=== PATIENT | male | born 1975 | race Asian ===

== ENCOUNTER 2017-08-10 09:51 | Inpatient (IN) | payer OTHER ==
[2017-08-10 12:06] LABS: Mean Corpuscular HGB Conc 31 % (32-34); Mean Corpuscular Hemoglobin 28 pg (28-32); Mean Corpuscular Volume 92 fl (84-94); Platelet Count 183 K/mm3 (140-440); Red Cell Distribution Width 15.8 % (13.2-15.2)
[2017-08-10 12:16] LABS: Hematocrit 53.2 % (35.5-45.6); Hemoglobin 16.4 gm/dl (11.8-15.2)
[2017-08-10 12:29] LABS: BUN/Creatinine Ratio 13; Blood Urea Nitrogen 15 mg/dL (9-20); Calcium 9.7 mg/dL (8.4-10.2); Hemolysis Index 37
[2017-08-10] MEDS ORDERED: NACL 0.9% 1000 ML 2,000 ML ONE (12:40)
[2017-08-10 12:43] LABS: Anisocytosis 1+; Band Neutrophils # (Manual) 0.4 K/mm3; Basophils % (Manual) 0 % (0.0-1.8); Poikilocytosis 1+; Total Cells Counted 100
[2017-08-10 12:44] LABS: Target Cells 1+; Tear Drop Cells 1+
[2017-08-10] MEDS ORDERED: D50W (25GM) Syringe IV PRN ×2 (12:48→16:01)
--- NOTE | 2017-08-10 13:16 | Emergency Department Report ---
HPI - General Chief Complaint: Hyperglycemia Time Seen by Provider: 08/10/17 12:40 - HPI HPI: This is a 42-year-old F [place]an male presents to the emergency department with a complaint of some fatigue and/or weakness, increased thirst and increased urination. The patient has a history of recently being diagnosed with insulin- dependent diabetes and has 2 previous episodes of diabetic ketoacidosis. The patient says that his significant other made him come in to be seen. He is on Humalog and a second insulin treatment and says that he takes compliantly. His primary care physician is a Dr. Sylvester in [place] but he says he is trying to find a physician closer to this area. He did not take anything for her symptoms at presentation. He denies any chest pain, shortness breath, fever but he did have some nausea and vomiting this morning. ED Past Medical Hx - Past Medical History Hx Diabetes: Yes - Surgical History Past Surgical History?: No - Medications Home Medications: Home Medications Medication Instructions Recorded Confirmed Last Taken Type Insulin Detemir [Levemir VIAL] 30 units SUB-Q DAILY 08/10/17 08/10/17 Unknown History Insulin Lispro Prot/Lispro 30 units SUB-Q BID 08/10/17 08/10/17 Unknown History [HumaLOG MIX 75/25] ED Review of Systems ROS: Stated complaint: WEAKNESS, HYPERGLYCEMIA Other details as noted in HPI Comment: All other systems reviewed and negative Constitutional: weakness. denies: chills, fever Eyes: denies: eye pain, eye discharge, vision change ENT: denies: ear pain, throat pain Respiratory: denies: cough, shortness of breath, wheezing Cardiovascular: denies: chest pain, palpitations Endocrine: increased thirst, increased urine Gastrointestinal: nausea, vomiting Genitourinary: frequency. denies: dysuria Musculoskeletal: denies: back pain, joint swelling, arthralgia Skin: denies: rash, lesions Neurological: denies: headache, numbness Physical Exam - Physical Exam Vital Signs: Vital Signs 08/10/17 11:24 Temperature 97.7 F Pulse Rate 90 Respiratory 18 Rate Blood Pressure 129/81 O2 Sat by Pulse 99 Oximetry Physical Exam: GENERAL: The patient is well-developed well-nourished. HENT: Normocephalic. Atraumatic. Patient has moist mucous membranes. EYES: Extraocular motions are intact. Pupils equal reactive to light bilaterally. NECK: Supple. Trachea is midline. CHEST/LUNGS: Clear to auscultation. There is no respiratory distress noted. HEART/CARDIOVASCULAR: Regular. There is no tachycardia. There is no murmur. ABDOMEN: Abdomen is soft, nontender. Patient has normal bowel sounds. There is no abdominal distention. SKIN: Skin is warm and dry. NEURO: The patient is awake, alert, and oriented. The patient is cooperative. The patient has no focal neurologic deficits. The patient has normal speech. MUSCULOSKELETAL: There is no tenderness or deformity. There is no limitation range of motion. There is no evidence of acute injury. ED Course Vital Signs 08/10/17 11:24 Temperature 97.7 F Pulse Rate 90 Respiratory 18 Rate Blood Pressure 129/81 O2 Sat by Pulse 99 Oximetry ED Medical Decision Making - Lab Data Result diagrams: 08/10/17 11:39 08/10/17 13:59 - Medical Decision Making The patient presents in diabetic ketoacidosis. He has venous acidosis of 7. He has a bicarbonate level of 6. Anion gap is 44. His blood sugar is about 450. Given IV fluid resuscitation and started on insulin drip he will be admitted to the ICU. Accepted for admission by the hospitalist, Dr. Alvarez. - Differential Diagnosis DKA, HHNK, Hypoglycemia Critical Care Time: No Critical care attestation.: If time is entered above; I have spent that time in minutes in the direct care of this critically ill patient, excluding procedure time. ED Disposition Clinical Impression: Metabolic acidosis Diabetic ketoacidosis Qualifiers: Diabetes mellitus type: type 1 Diabetes mellitus complication detail: without coma Qualified Code(s): E10.10 - Type 1 diabetes mellitus with ketoacidosis without coma Uncontrolled diabetes mellitus Qualifiers: Diabetes mellitus type: type 1 Diabetes mellitus complication status: with ketoacidosis Diabetes mellitus complication detail: without coma Qualified Code( s): E10.10 - Type 1 diabetes mellitus with ketoacidosis without coma Disposition: OP ADMIT IP TO THIS HOSP Is pt being admited?: Yes Condition: Stable Instructions: Diabetic Ketoacidosis (ED) Referrals: EDMAR HANEY MD [Primary Care Provider] - 3-5 Days Time of Disposition: 13:43
[2017-08-10 13:44] LABS: Bacteria,Urine 2+ /HPF (Negative); Bilirubin,Urine NEG (Negative); Blood,Urine SM (Negative); Color,Urine Yellow (Yellow); Granular Casts,Urine 10 /LPF; Mucus,Urine FEW /HPF; Nitrite,Urine NEG (Negative); Urobilinogen,Urine < 2.0 mg/dL (<2.0); WBC,Urine < 1.0 /HPF (0.0-6.0)
[2017-08-10 14:45] LABS: BUN/Creatinine Ratio 12; Blood Urea Nitrogen 16 mg/dL (9-20); Calcium 9.4 mg/dL (8.4-10.2); Hemolysis Index 80
[2017-08-10] MEDS: HEPARIN SUB-Q SCH ×2 (14:46→22:51)
[2017-08-10 14:58] LABS: Magnesium 2.6 mg/dL (1.7-2.3)
[2017-08-10 15:36] LABS: BUN/Creatinine Ratio 13; Blood Urea Nitrogen 16 mg/dL (9-20); Calcium 9.2 mg/dL (8.4-10.2); Hemolysis Index 40
--- NOTE | 2017-08-10 16:01 | History and Physical Report ---
History of Present Illness Date of examination: 08/10/17 Date of admission: 08/10/17 13:43 Chief complaint: Please see dictated H/p in reports History of present illness: Cassidye see dictated H/p in reports Medications and Allergies Allergies Allergy/AdvReac Type Severity Reaction Status Date / Time No Known Allergies Allergy Verified 08/10/17 11:24 Home Medications Medication Instructions Recorded Confirmed Last Taken Type Insulin Detemir [Levemir VIAL] 30 units SUB-Q DAILY 08/10/17 08/10/17 Unknown History Insulin Lispro Prot/Lispro 30 units SUB-Q BID 08/10/17 08/10/17 Unknown History [HumaLOG MIX 75/25] Active Meds: Active Medications Dextrose (D50w (25gm) Syringe) 0 ml IV PRN PRN PRN Reason: Hypoglycemia Heparin Sodium (Porcine) (Heparin) 5,000 unit SUB-Q Q8HR GREG Last Admin: 08/10/17 14:46 Dose: 5,000 unit Insulin Human Regular 100 (units/ Sodium Chloride) 100 mls @ 5 mls/hr IV TITR GREG; 5 UNITS/HR PRN Reason: Protocol Exam - Constitutional Vitals: Temp Pulse Resp BP Pulse Ox 97.7 F 90 18 129/81 99 08/10/17 11:24 08/10/17 11:24 08/10/17 11:24 08/10/17 11:24 08/10/17 11:24 Results - Labs CBC & Chem 7: 08/10/17 11:39 08/11/17 07:13 Labs: Laboratory Last Values WBC 17.6 K/mm3 (4.5-11.0) H 08/10/17 11:39 RBC 5.80 M/mm3 (3.65-5.03) H 08/10/17 11:39 Hgb 16.4 gm/dl (11.8-15.2) H 08/10/17 11:39 Hct 53.2 % (35.5-45.6) H 08/10/17 11:39 MCV 92 fl (84-94) 08/10/17 11:39 MCH 28 pg (28-32) 08/10/17 11:39 MCHC 31 % (32-34) L 08/10/17 11:39 RDW 15.8 % (13.2-15.2) H 08/10/17 11:39 Plt Count 183 K/mm3 (140-440) 08/10/17 11:39 Add Manual Diff Complete 08/10/17 11:39 Total Counted 100 08/10/17 11:39 Seg Neuts % (Manual) 77.0 % (40.0-70.0) H 08/10/17 11:39 Band Neutrophils % 2.0 % 08/10/17 11:39 Lymphocytes % (Manual) 10.0 % (13.4-35.0) L 08/10/17 11:39 Reactive Lymphs % (Man) 0 % 08/10/17 11:39 Monocytes % (Manual) 7.0 % (0.0-7.3) 08/10/17 11:39 Eosinophils % (Manual) 1.0 % (0.0-4.3) 08/10/17 11:39 Basophils % (Manual) 0 % (0.0-1.8) 08/10/17 11:39 Metamyelocytes % 3.0 % 08/10/17 11:39 Myelocytes % 0 % 08/10/17 11:39 Promyelocytes % 0 % 08/10/17 11:39 Blast Cells % 0 % 08/10/17 11:39 Nucleated RBC % Not Reportable 08/10/17 11:39 Seg Neutrophils # Man 13.6 K/mm3 (1.8-7.7) H 08/10/17 11:39 Band Neutrophils # 0.4 K/mm3 08/10/17 11:39 Lymphocytes # (Manual) 1.8 K/mm3 (1.2-5.4) 08/10/17 11:39 Abs React Lymphs (Man) 0.0 K/mm3 08/10/17 11:39 Monocytes # (Manual) 1.2 K/mm3 (0.0-0.8) H 08/10/17 11:39 Eosinophils # (Manual) 0.2 K/mm3 (0.0-0.4) 08/10/17 11:39 Basophils # (Manual) 0.0 K/mm3 (0.0-0.1) 08/10/17 11:39 Metamyelocytes # 0.5 K/mm3 08/10/17 11:39 Myelocytes # 0.0 K/mm3 08/10/17 11:39 Promyelocytes # 0.0 K/mm3 08/10/17 11:39 Blast Cells # 0.0 K/mm3 08/10/17 11:39 WBC Morphology Not Reportable 08/10/17 11:39 Hypersegmented Neuts Not Reportable 08/10/17 11:39 Hyposegmented Neuts Not Reportable 08/10/17 11:39 Hypogranular Neuts Not Reportable 08/10/17 11:39 Smudge Cells Not Reportable 08/10/17 11:39 Toxic Granulation Not Reportable 08/10/17 11:39 Toxic Vacuolation Not Reportable 08/10/17 11:39 Dohle Bodies Not Reportable 08/10/17 11:39 Pelger-Huet Anomaly Not Reportable 08/10/17 11:39 Mary Rods Not Reportable 08/10/17 11:39 Platelet Estimate Appears normal 08/10/17 11:39 Clumped Platelets Not Reportable 08/10/17 11:39 Plt Clumps, EDTA Not Reportable 08/10/17 11:39 Large Platelets Not Reportable 08/10/17 11:39 Giant Platelets Not Reportable 08/10/17 11:39 Platelet Satelliting Not Reportable 08/10/17 11:39 Plt Morphology Comment Not Reportable 08/10/17 11:39 RBC Morphology Not Reportable 08/10/17 11:39 Dimorphic RBCs Not Reportable 08/10/17 11:39 Polychromasia Not Reportable 08/10/17 11:39 Hypochromasia Not Reportable 08/10/17 11:39 Poikilocytosis 1+ 08/10/17 11:39 Anisocytosis 1+ 08/10/17 11:39 Microcytosis Not Reportable 08/10/17 11:39 Macrocytosis Not Reportable 08/10/17 11:39 Spherocytes Not Reportable 08/10/17 11:39 Pappenheimer Bodies Not Reportable 08/10/17 11:39 Sickle Cells Not Reportable 08/10/17 11:39 Target Cells 1+ 08/10/17 11:39 Tear Drop Cells 1+ 08/10/17 11:39 Ovalocytes Not Reportable 08/10/17 11:39 Helmet Cells Not Reportable 08/10/17 11:39 Quinones-Blanford Bodies Not Reportable 08/10/17 11:39 [place] Rings Not Reportable 08/10/17 11:39 Burnside Cells Not Reportable 08/10/17 11:39 Bite Cells Not Reportable 08/10/17 11:39 Crenated Cell Not Reportable 08/10/17 11:39 Elliptocytes Not Reportable 08/10/17 11:39 Acanthocytes (Spur) Not Reportable 08/10/17 11:39 Rouleaux Not Reportable 08/10/17 11:39 Hemoglobin C Crystals Not Reportable 08/10/17 11:39 Schistocytes Not Reportable 08/10/17 11:39 Malaria parasites Not Reportable 08/10/17 11:39 Fernando Bodies Not Reportable 08/10/17 11:39 Hem Pathologist Commnt No 08/10/17 11:39 VBG pH 7.020 (7.320-7.420) L* 08/10/17 11:39 Sodium 138 mmol/L (137-145) 08/10/17 14:42 Potassium 5.6 mmol/L (3.6-5.0) H 08/10/17 14:42 Chloride 95.1 mmol/L (98-107) L 08/10/17 14:42 Carbon Dioxide 2 mmol/L (22-30) L* 08/10/17 14:42 Anion Gap 47 mmol/L 08/10/17 14:42 BUN 16 mg/dL (9-20) 08/10/17 14:42 Creatinine 1.2 mg/dL (0.8-1.5) 08/10/17 14:42 Estimated GFR > 60 ml/min 08/10/17 14:42 BUN/Creatinine Ratio 13 % 08/10/17 14:42 Glucose 445 mg/dL (75-100) H 08/10/17 14:42 POC Glucose 334 (70-105) H 08/10/17 11:25 Calcium 9.2 mg/dL (8.4-10.2) 08/10/17 14:42 Phosphorus 6.00 mg/dL (2.5-4.5) H 08/10/17 13:59 Magnesium 2.60 mg/dL (1.7-2.3) H 08/10/17 13:59 Urine Color Yellow (Yellow) 08/10/17 13:23 Urine Turbidity Clear (Clear) 08/10/17 13:23 Urine pH 5.0 (5.0-7.0) 08/10/17 13:23 Ur Specific [place] 1.020 (1.003-1.030) 08/10/17 13:23 Urine Protein 100 mg/dl mg/dL (Negative) 08/10/17 13:23 Urine Glucose (UA) >=500 mg/dL (Negative) 08/10/17 13:23 Urine Ketones 80 mg/dL (Negative) 08/10/17 13:23 Urine Blood Sm (Negative) 08/10/17 13:23 Urine Nitrite Neg (Negative) 08/10/17 13:23 Urine Bilirubin Neg (Negative) 08/10/17 13:23 Urine Urobilinogen < 2.0 mg/dL (<2.0) 08/10/17 13:23 Ur Leukocyte Esterase Neg (Negative) 08/10/17 13:23 Urine WBC (Auto) < 1.0 /HPF (0.0-6.0) 08/10/17 13:23 Urine RBC (Auto) 3.0 /HPF (0.0-6.0) 08/10/17 13:23 U Epithel Cells (Auto) < 1.0 /HPF (0-13.0) 08/10/17 13:23 Urine Bacteria (Auto) 2+ /HPF (Negative) 08/10/17 13:23 Granular Casts 10 /LPF 08/10/17 13:23 Urine Mucus Few /HPF 08/10/17 13:23
[2017-08-10] MEDS: NovoLIN R 100 UNITS in NACL 0.9% 99 ML IV SCH (16:02)
[2017-08-10] MEDS: NACL 0.9% 1000 ML 1,000 ML IV ONE ×2 (16:12→18:16)
[2017-08-10 16:44] LABS: Creatinine,Urine 27.7 mg/dL (0.1-20.0); Microalbumin/Creatinine Ratio 595.6 ug/mg
[2017-08-10] MEDS ORDERED: KCL 10MEQ/100ML 10 MEQ/100 ML BAG IV PRN ×2 (17:00)
[2017-08-10] MEDS ORDERED: D5W/0.45% NACL/KCL 20 MEQ 20 MEQ/1,000 ML BAG IV SCH (17:00)
[2017-08-10] MEDS ORDERED: NovoLIN R 100 UNITS in NACL 0.9% 99 ML IV SCH (18:00)
[2017-08-10 20:18] LABS: BUN/Creatinine Ratio 12; Blood Urea Nitrogen 13 mg/dL (9-20); Calcium 8.7 mg/dL (8.4-10.2); Hemolysis Index 45
[2017-08-10 20:21] LABS: Chol/HDL Ratio 11.58 %; HDL Cholesterol 36 mg/dL (40-59); LDL Cholesterol,Direct TNR mg/dL (50-130)
[2017-08-11] MEDS: NACL 0.9% 1000 ML 1,000 ML IV ONE (00:39)
[2017-08-11 00:52] LABS: BUN/Creatinine Ratio 12; Blood Urea Nitrogen 11 mg/dL (9-20); Calcium 8.6 mg/dL (8.4-10.2); Hemolysis Index 22
[2017-08-11] MEDS: HEPARIN SUB-Q SCH ×2 (06:19→14:59)
[2017-08-11] MEDS: ZOSYN/NS 4.5GM/100ML 4.5 GM/100 ML VIAL IV SCH ×3 (06:20→22:43)
[2017-08-11 06:21] LABS: BUN/Creatinine Ratio 11; Blood Urea Nitrogen 9 mg/dL (9-20); Calcium 6.9 mg/dL (8.4-10.2); Hemolysis Index 5
[2017-08-11 07:36] LABS: Alanine Aminotransferase TNR units/L (7-56); BUN/Creatinine Ratio TNR; Blood Urea Nitrogen TNR mg/dL (9-20)
[2017-08-11 07:37] LABS: Albumin TNR g/dL (3.9-5); Calcium TNR mg/dL (8.4-10.2); Hemolysis Index TNR
[2017-08-11 08:02] LABS: Alanine Aminotransferase 12 units/L (7-56); Albumin 4.1 g/dL (3.9-5); BUN/Creatinine Ratio 13; Blood Urea Nitrogen 10 mg/dL (9-20); Calcium 8.5 mg/dL (8.4-10.2); Hemolysis Index 17
[2017-08-11] MEDS: NovoLIN R 100 UNITS in NACL 0.9% 99 ML IV SCH (08:56)
--- NOTE | 2017-08-11 09:56 | History and Physical Report ---
ADDENDUM Systemic inflammatory response syndrome. The patient has a high white count of 17,600. No focus of infection seen. Culture is ordered. Urine is not the source of infection. We will treat him with broad-spectrum antibiotics, Zosyn. Also, the leukocytosis can be secondary to stress-induced by diabetic ketoacidosis. JOB# [id number] VSM/NTS
--- NOTE | 2017-08-11 10:15 | History and Physical Report ---
CHIEF COMPLAINT: Increasing shortness of breath and feeling weak for 1 day. HISTORY OF PRESENT ILLNESS: A 42 -[place]er male with history of insulin-dependent diabetes, apparently compliant, comes in for increasing fatigue and weakness and increasing thirst and increasing urination. The patient has been diagnosed with insulin-dependent diabetes, recently and is on insulin Levemir 30 units at night time and Humalog mix 75/25 30 units twice a day. The patient states he has been taking it regularly. No chest pain. No fever, no chills. PAST MEDICAL HISTORY: Significant for recently diagnosed insulin-dependent diabetes. PAST SURGICAL HISTORY: None. MEDICATIONS: Humalog mix 75/25 30 units twice a day and Levemir 30 units at night time. FAMILY HISTORY: Significant for hypertension. REVIEW OF SYSTEMS: Significant for weakness and shortness of breath and nausea. Vomited about 4 times. Otherwise, review of systems is essentially negative. PHYSICAL EXAMINATION: GENERAL: The patient is slightly tachypneic. VITAL SIGNS: Temperature 97.7, pulse is 90, respirations are 18, blood pressure 129/81, sats are 99%. HEENT: Dry mucous membranes. Pupils are equal and reactive. NECK: Supple, no lymphadenopathy, no thyromegaly. LUNGS: Clear to auscultation and percussion. Good air entry. CARDIOVASCULAR: S1, S2 heard. No gallop, no murmur, no rub. Apical impulse in left fifth intercostal space, in midclavicular anterior axillary line. ABDOMEN: Soft and benign. No hepatosplenomegaly. No guarding, no rigidity. Hernial orifices are normal. EXTREMITIES: Good pedal pulses. No pedal edema. CENTRAL NERVOUS SYSTEM: Alert and oriented x 4, nonfocal exam. SKIN: Normal. LABORATORY DATA: Significant for white count of 17,000, potassium of 5.8. Initial glucose of 444. A1c was 13.0, bicarbonate is 6, BUN and creatinine is 15 and 1.2. Initial potassium is 4.9, later on it was 5.6. Triglycerides are 720 and cholesterol is 417, HDL is 336. ASSESSMENT AND PLAN: 1. Diabetic ketoacidosis. The patient had low bicarbonate. The patient initially admitted to ICU on insulin drip and IV fluids. The patient's insulin to be adjusted to 75/25 40 units twice a day. Discontinue the Levemir. We will add Apidra before lunch, 10 units. His A1c is 13, which is high and suggesting poorly controlled diabetes. 2. Hyperkalemia. Kayexalate if necessary. In the meantime, sodium bicarbonate and insulin drip. 3. Hypertriglyceridemia. The patient added on fenofibrate and statins. The patient may be susceptible to hypertriglyceridemia. 4. Deep venous thrombosis prophylaxis, Lovenox 40 mg subcutaneous daily. CRITICAL CARE STATEMENT: The high probability of a clinically significant sudden or life-threatening deterioration of the pulmonary, cardiac and renal systems required my full and direct attention, intervention and personal management. The aggregate critical care time was 40 minutes: The time is in addition to time spent performing reported procedures, but includes the following, data review and interpretation, patient assessment and monitoring of vital signs, documentation, medication orders and management. JOB# [id number] GURMEET/GLORIA
[2017-08-11 10:39] LABS: BUN/Creatinine Ratio 14; Blood Urea Nitrogen 10 mg/dL (9-20); Calcium 8.4 mg/dL (8.4-10.2); Hemolysis Index 45
[2017-08-11] MEDS: TRICOR PO SCH (12:10)
--- NOTE | 2017-08-11 13:17 | Progress Note ---
Assessment and Plan Assessment and plan: DKA. Patient reports he was diagnosed with diabetes mellitus partly 2 years ago. Patient states that his regimen is 75/25 Humalog mix, 30 units twice a day and Levemir 30 units at bedtime. We will continue the IV insulin drip until the anion gap has closed. Continue aggressive IV fluid hydration. Follow -up serial BMPs. Hyperkalemia. Resolved. Etiology secondary to above. SIRS. Etiology likely secondary to DKA. No evidence of infection at this present time. Continue empiric antibiotics for now Leukocytosis. Likely stress/leukemoid reaction from above The high probability of a clinically significant, sudden or life threatening deterioration of the [endocrine] system(s) required my full and direct attention , intervention and personal management. The aggregate critical care time was [31 ] minutes. This time is in addition to time spent performing reported procedures but includes the following: [x] Data Review and interpretation [x] Patient assessment and monitoring of vital signs [x] Documentation [x] Medication orders and management History Interval history: She denies chest pain, shortness of breath. Patient states that he feels better. Hospitalist Physical - Constitutional Vitals: Temp Pulse Resp BP Pulse Ox 97.7 F 64 13 96/68 100 08/10/17 11:24 08/11/17 09:00 08/11/17 09:00 08/11/17 09:00 08/10/17 20:00 General appearance: Present: no acute distress, well-nourished - EENT Eyes: Present: PERRL, EOM intact ENT: hearing intact, clear oral mucosa, dentition normal - Neck Neck: Present: supple, normal ROM - Respiratory Respiratory effort: normal Respiratory: bilateral: CTA - Cardiovascular Rhythm: regular Heart Sounds: Present: S1 & S2. Absent: gallop, rub - Extremities Extremities: no ischemia, No edema, Full ROM - Abdominal General gastrointestinal: soft, non-tender, non-distended, normal bowel sounds - Integumentary Integumentary: Present: clear, warm, dry - Neurologic Neurologic: CNII-XII intact, moves all extremities Results - Labs CBC & Chem 7: 08/10/17 11:39 08/11/17 09:27 Labs: Laboratory Last Values WBC 17.6 K/mm3 (4.5-11.0) H 08/10/17 11:39 RBC 5.80 M/mm3 (3.65-5.03) H 08/10/17 11:39 Hgb 16.4 gm/dl (11.8-15.2) H 08/10/17 11:39 Hct 53.2 % (35.5-45.6) H 08/10/17 11:39 MCV 92 fl (84-94) 08/10/17 11:39 MCH 28 pg (28-32) 08/10/17 11:39 MCHC 31 % (32-34) L 08/10/17 11:39 RDW 15.8 % (13.2-15.2) H 08/10/17 11:39 Plt Count 183 K/mm3 (140-440) 08/10/17 11:39 Add Manual Diff Complete 08/10/17 11:39 Total Counted 100 08/10/17 11:39 Seg Neuts % (Manual) 77.0 % (40.0-70.0) H 08/10/17 11:39 Band Neutrophils % 2.0 % 08/10/17 11:39 Lymphocytes % (Manual) 10.0 % (13.4-35.0) L 08/10/17 11:39 Reactive Lymphs % (Man) 0 % 08/10/17 11:39 Monocytes % (Manual) 7.0 % (0.0-7.3) 08/10/17 11:39 Eosinophils % (Manual) 1.0 % (0.0-4.3) 08/10/17 11:39 Basophils % (Manual) 0 % (0.0-1.8) 08/10/17 11:39 Metamyelocytes % 3.0 % 08/10/17 11:39 Myelocytes % 0 % 08/10/17 11:39 Promyelocytes % 0 % 08/10/17 11:39 Blast Cells % 0 % 08/10/17 11:39 Nucleated RBC % Not Reportable 08/10/17 11:39 Seg Neutrophils # Man 13.6 K/mm3 (1.8-7.7) H 08/10/17 11:39 Band Neutrophils # 0.4 K/mm3 08/10/17 11:39 Lymphocytes # (Manual) 1.8 K/mm3 (1.2-5.4) 08/10/17 11:39 Abs React Lymphs (Man) 0.0 K/mm3 08/10/17 11:39 Monocytes # (Manual) 1.2 K/mm3 (0.0-0.8) H 08/10/17 11:39 Eosinophils # (Manual) 0.2 K/mm3 (0.0-0.4) 08/10/17 11:39 Basophils # (Manual) 0.0 K/mm3 (0.0-0.1) 08/10/17 11:39 Metamyelocytes # 0.5 K/mm3 08/10/17 11:39 Myelocytes # 0.0 K/mm3 08/10/17 11:39 Promyelocytes # 0.0 K/mm3 08/10/17 11:39 Blast Cells # 0.0 K/mm3 08/10/17 11:39 WBC Morphology Not Reportable 08/10/17 11:39 Hypersegmented Neuts Not Reportable 08/10/17 11:39 Hyposegmented Neuts Not Reportable 08/10/17 11:39 Hypogranular Neuts Not Reportable 08/10/17 11:39 Smudge Cells Not Reportable 08/10/17 11:39 Toxic Granulation Not Reportable 08/10/17 11:39 Toxic Vacuolation Not Reportable 08/10/17 11:39 Dohle Bodies Not Reportable 08/10/17 11:39 Pelger-Huet Anomaly Not Reportable 08/10/17 11:39 Mary Rods Not Reportable 08/10/17 11:39 Platelet Estimate Appears normal 08/10/17 11:39 Clumped Platelets Not Reportable 08/10/17 11:39 Plt Clumps, EDTA Not Reportable 08/10/17 11:39 Large Platelets Not Reportable 08/10/17 11:39 Giant Platelets Not Reportable 08/10/17 11:39 Platelet Satelliting Not Reportable 08/10/17 11:39 Plt Morphology Comment Not Reportable 08/10/17 11:39 RBC Morphology Not Reportable 08/10/17 11:39 Dimorphic RBCs Not Reportable 08/10/17 11:39 Polychromasia Not Reportable 08/10/17 11:39 Hypochromasia Not Reportable 08/10/17 11:39 Poikilocytosis 1+ 08/10/17 11:39 Anisocytosis 1+ 08/10/17 11:39 Microcytosis Not Reportable 08/10/17 11:39 Macrocytosis Not Reportable 08/10/17 11:39 Spherocytes Not Reportable 08/10/17 11:39 Pappenheimer Bodies Not Reportable 08/10/17 11:39 Sickle Cells Not Reportable 08/10/17 11:39 Target Cells 1+ 08/10/17 11:39 Tear Drop Cells 1+ 08/10/17 11:39 Ovalocytes Not Reportable 08/10/17 11:39 Helmet Cells Not Reportable 08/10/17 11:39 Quinones-Capulin Bodies Not Reportable 08/10/17 11:39 [place] Rings Not Reportable 08/10/17 11:39 [place] Cells Not Reportable 08/10/17 11:39 Bite Cells Not Reportable 08/10/17 11:39 Crenated Cell Not Reportable 08/10/17 11:39 Elliptocytes Not Reportable 08/10/17 11:39 Acanthocytes (Spur) Not Reportable 08/10/17 11:39 Rouleaux Not Reportable 08/10/17 11:39 Hemoglobin C Crystals Not Reportable 08/10/17 11:39 Schistocytes Not Reportable 08/10/17 11:39 Malaria parasites Not Reportable 08/10/17 11:39 Fernando Bodies Not Reportable 08/10/17 11:39 Hem Pathologist Commnt No 08/10/17 11:39 VBG pH 7.020 (7.320-7.420) L* 08/10/17 11:39 Sodium 132 mmol/L (137-145) L 08/11/17 09:27 Potassium 4.0 mmol/L (3.6-5.0) 08/11/17 09:27 Chloride 99.2 mmol/L (98-107) 08/11/17 09:27 Carbon Dioxide 12 mmol/L (22-30) L 08/11/17 09:27 Anion Gap 25 mmol/L 08/11/17 09:27 BUN 10 mg/dL (9-20) 08/11/17 09:27 Creatinine 0.7 mg/dL (0.8-1.5) L 08/11/17 09:27 Estimated GFR > 60 ml/min 08/11/17 09:27 BUN/Creatinine Ratio 14 % 08/11/17 09:27 Glucose 218 mg/dL (75-100) H 08/11/17 09:27 POC Glucose 100 (70-105) 08/11/17 13:14 Hemoglobin A1c 13.0 % (4-6) H 08/10/17 19:40 Calcium 8.4 mg/dL (8.4-10.2) 08/11/17 09:27 Phosphorus 3.70 mg/dL (2.5-4.5) D 08/10/17 19:40 Magnesium 2.20 mg/dL (1.7-2.3) 08/10/17 19:40 Total Bilirubin 0.40 mg/dL (0.1-1.2) 08/11/17 07:13 AST 14 units/L (5-40) 08/11/17 07:13 ALT 12 units/L (7-56) 08/11/17 07:13 Alkaline Phosphatase 89 units/L (35-129) 08/11/17 07:13 Total Protein 6.6 g/dL (6.3-8.2) 08/11/17 07:13 Albumin 4.1 g/dL (3.9-5) 08/11/17 07:13 Albumin/Globulin Ratio 1.6 % 08/11/17 07:13 Triglycerides 720 mg/dL (2-149) H 08/10/17 19:40 Cholesterol 417 mg/dL (50-199) H 08/10/17 19:40 LDL Cholesterol Direct TNR 08/10/17 19:40 HDL Cholesterol 36 mg/dL (40-59) L 08/10/17 19:40 Cholesterol/HDL Ratio 11.58 % 08/10/17 19:40 Urine Color Yellow (Yellow) 08/10/17 13:23 Urine Turbidity Clear (Clear) 08/10/17 13:23 Urine pH 5.0 (5.0-7.0) 08/10/17 13:23 Ur Specific Bruce 1.020 (1.003-1.030) 08/10/17 13:23 Urine Protein 100 mg/dl mg/dL (Negative) 08/10/17 13:23 Urine Glucose (UA) >=500 mg/dL (Negative) 08/10/17 13:23 Urine Ketones 80 mg/dL (Negative) 08/10/17 13:23 Urine Blood Sm (Negative) 08/10/17 13:23 Urine Nitrite Neg (Negative) 08/10/17 13:23 Urine Bilirubin Neg (Negative) 08/10/17 13:23 Urine Urobilinogen < 2.0 mg/dL (<2.0) 08/10/17 13:23 Ur Leukocyte Esterase Neg (Negative) 08/10/17 13:23 Urine WBC (Auto) < 1.0 /HPF (0.0-6.0) 08/10/17 13:23 Urine RBC (Auto) 3.0 /HPF (0.0-6.0) 08/10/17 13:23 U Epithel Cells (Auto) < 1.0 /HPF (0-13.0) 08/10/17 13:23 Urine Bacteria (Auto) 2+ /HPF (Negative) 08/10/17 13:23 Granular Casts 10 /LPF 08/10/17 13:23 Urine Mucus Few /HPF 08/10/17 13:23 Urine Creatinine 27.7 mg/dL (0.1-20.0) H 08/10/17 16:15 Urine Microalbumin 16.5 mg/dL (0.1-34.0) 08/10/17 16:15 Microalb/Creat Ratio 595.6 ug/mg 08/10/17 16:15
[2017-08-11 13:40] LABS: BUN/Creatinine Ratio 13; Blood Urea Nitrogen 9 mg/dL (9-20); Calcium 8.8 mg/dL (8.4-10.2); Hemolysis Index 11
[2017-08-11 16:33] LABS: BUN/Creatinine Ratio 13; Blood Urea Nitrogen 9 mg/dL (9-20); Calcium 8.6 mg/dL (8.4-10.2); Hemolysis Index 15
[2017-08-11] MEDS ORDERED: D50W (25GM) Syringe IV PRN (20:44)
[2017-08-11] MEDS ORDERED: NACL 0.9% 1000 ML 1,000 ML IV SCH (21:00)
[2017-08-11] MEDS ORDERED: PRAVACHOL PO SCH (22:00)
[2017-08-12] MEDS: HEPARIN SUB-Q SCH ×3 (00:29→16:59)
[2017-08-12] MEDS: ZOSYN/NS 4.5GM/100ML 4.5 GM/100 ML VIAL IV SCH (07:04)
--- NOTE | 2017-08-12 09:36 | Progress Note ---
Assessment and Plan Assessment and plan: DKA. Patient reports he was diagnosed with diabetes mellitus partly 2 years ago. Patient states that his regimen is 75/25 Humalog mix, 30 units twice a day and Levemir 30 units at bedtime. Patient's blood sugar this morning remained elevated. We will make adjustments to his insulin as needed. Hyperkalemia. Resolved. Etiology secondary to above. SIRS. Etiology likely secondary to DKA. No evidence of infection at this present time. Continue empiric antibiotics for now Leukocytosis. Likely stress/leukemoid reaction from above History Interval history: No new issues overnight. Hospitalist Physical - Constitutional Vitals: Temp Pulse Resp BP Pulse Ox 98.4 F 60 20 92/54 99 08/12/17 08:08 08/12/17 08:08 08/12/17 08:08 08/12/17 08:08 08/12/17 08:08 General appearance: Present: no acute distress, well-nourished - EENT Eyes: Present: PERRL, EOM intact ENT: hearing intact, clear oral mucosa, dentition normal - Neck Neck: Present: supple, normal ROM - Respiratory Respiratory effort: normal Respiratory: bilateral: CTA - Cardiovascular Rhythm: regular Heart Sounds: Present: S1 & S2. Absent: gallop, rub - Extremities Extremities: no ischemia, No edema, Full ROM - Abdominal General gastrointestinal: soft, non-tender, non-distended, normal bowel sounds - Integumentary Integumentary: Present: clear, warm, dry - Neurologic Neurologic: CNII-XII intact, moves all extremities Results - Labs CBC & Chem 7: 08/10/17 11:39 08/11/17 15:58 Labs: Laboratory Last Values WBC 17.6 K/mm3 (4.5-11.0) H 08/10/17 11:39 RBC 5.80 M/mm3 (3.65-5.03) H 08/10/17 11:39 Hgb 16.4 gm/dl (11.8-15.2) H 08/10/17 11:39 Hct 53.2 % (35.5-45.6) H 08/10/17 11:39 MCV 92 fl (84-94) 08/10/17 11:39 MCH 28 pg (28-32) 08/10/17 11:39 MCHC 31 % (32-34) L 08/10/17 11:39 RDW 15.8 % (13.2-15.2) H 08/10/17 11:39 Plt Count 183 K/mm3 (140-440) 08/10/17 11:39 Add Manual Diff Complete 08/10/17 11:39 Total Counted 100 08/10/17 11:39 Seg Neuts % (Manual) 77.0 % (40.0-70.0) H 08/10/17 11:39 Band Neutrophils % 2.0 % 08/10/17 11:39 Lymphocytes % (Manual) 10.0 % (13.4-35.0) L 08/10/17 11:39 Reactive Lymphs % (Man) 0 % 08/10/17 11:39 Monocytes % (Manual) 7.0 % (0.0-7.3) 08/10/17 11:39 Eosinophils % (Manual) 1.0 % (0.0-4.3) 08/10/17 11:39 Basophils % (Manual) 0 % (0.0-1.8) 08/10/17 11:39 Metamyelocytes % 3.0 % 08/10/17 11:39 Myelocytes % 0 % 08/10/17 11:39 Promyelocytes % 0 % 08/10/17 11:39 Blast Cells % 0 % 08/10/17 11:39 Nucleated RBC % Not Reportable 08/10/17 11:39 Seg Neutrophils # Man 13.6 K/mm3 (1.8-7.7) H 08/10/17 11:39 Band Neutrophils # 0.4 K/mm3 08/10/17 11:39 Lymphocytes # (Manual) 1.8 K/mm3 (1.2-5.4) 08/10/17 11:39 Abs React Lymphs (Man) 0.0 K/mm3 08/10/17 11:39 Monocytes # (Manual) 1.2 K/mm3 (0.0-0.8) H 08/10/17 11:39 Eosinophils # (Manual) 0.2 K/mm3 (0.0-0.4) 08/10/17 11:39 Basophils # (Manual) 0.0 K/mm3 (0.0-0.1) 08/10/17 11:39 Metamyelocytes # 0.5 K/mm3 08/10/17 11:39 Myelocytes # 0.0 K/mm3 08/10/17 11:39 Promyelocytes # 0.0 K/mm3 08/10/17 11:39 Blast Cells # 0.0 K/mm3 08/10/17 11:39 WBC Morphology Not Reportable 08/10/17 11:39 Hypersegmented Neuts Not Reportable 08/10/17 11:39 Hyposegmented Neuts Not Reportable 08/10/17 11:39 Hypogranular Neuts Not Reportable 08/10/17 11:39 Smudge Cells Not Reportable 08/10/17 11:39 Toxic Granulation Not Reportable 08/10/17 11:39 Toxic Vacuolation Not Reportable 08/10/17 11:39 Dohle Bodies Not Reportable 08/10/17 11:39 Pelger-Huet Anomaly Not Reportable 08/10/17 11:39 Mary Rods Not Reportable 08/10/17 11:39 Platelet Estimate Appears normal 08/10/17 11:39 Clumped Platelets Not Reportable 08/10/17 11:39 Plt Clumps, EDTA Not Reportable 08/10/17 11:39 Large Platelets Not Reportable 08/10/17 11:39 Giant Platelets Not Reportable 08/10/17 11:39 Platelet Satelliting Not Reportable 08/10/17 11:39 Plt Morphology Comment Not Reportable 08/10/17 11:39 RBC Morphology Not Reportable 08/10/17 11:39 Dimorphic RBCs Not Reportable 08/10/17 11:39 Polychromasia Not Reportable 08/10/17 11:39 Hypochromasia Not Reportable 08/10/17 11:39 Poikilocytosis 1+ 08/10/17 11:39 Anisocytosis 1+ 08/10/17 11:39 Microcytosis Not Reportable 08/10/17 11:39 Macrocytosis Not Reportable 08/10/17 11:39 Spherocytes Not Reportable 08/10/17 11:39 Pappenheimer Bodies Not Reportable 08/10/17 11:39 Sickle Cells Not Reportable 08/10/17 11:39 Target Cells 1+ 08/10/17 11:39 Tear Drop Cells 1+ 08/10/17 11:39 Ovalocytes Not Reportable 08/10/17 11:39 Helmet Cells Not Reportable 08/10/17 11:39 [place] Bodies Not Reportable 08/10/17 11:39 [place] Rings Not Reportable 08/10/17 11:39 Patrice Cells Not Reportable 08/10/17 11:39 Bite Cells Not Reportable 08/10/17 11:39 Crenated Cell Not Reportable 08/10/17 11:39 Elliptocytes Not Reportable 08/10/17 11:39 Acanthocytes (Spur) Not Reportable 08/10/17 11:39 Rouleaux Not Reportable 08/10/17 11:39 Hemoglobin C Crystals Not Reportable 08/10/17 11:39 Schistocytes Not Reportable 08/10/17 11:39 Malaria parasites Not Reportable 08/10/17 11:39 Fernando Bodies Not Reportable 08/10/17 11:39 Hem Pathologist Commnt No 08/10/17 11:39 VBG pH 7.020 (7.320-7.420) L* 08/10/17 11:39 Sodium 134 mmol/L (137-145) L 08/11/17 15:58 Potassium 3.5 mmol/L (3.6-5.0) L 08/11/17 15:58 Chloride 102.8 mmol/L (98-107) 08/11/17 15:58 Carbon Dioxide 16 mmol/L (22-30) L 08/11/17 15:58 Anion Gap 19 mmol/L 08/11/17 15:58 BUN 9 mg/dL (9-20) 08/11/17 15:58 Creatinine 0.7 mg/dL (0.8-1.5) L 08/11/17 15:58 Estimated GFR > 60 ml/min 08/11/17 15:58 BUN/Creatinine Ratio 13 % 08/11/17 15:58 Glucose 149 mg/dL (75-100) H 08/11/17 15:58 POC Glucose 319 (70-105) H 08/12/17 06:11 Hemoglobin A1c 13.0 % (4-6) H 08/10/17 19:40 Calcium 8.6 mg/dL (8.4-10.2) 08/11/17 15:58 Phosphorus 3.70 mg/dL (2.5-4.5) D 08/10/17 19:40 Magnesium 2.20 mg/dL (1.7-2.3) 08/10/17 19:40 Total Bilirubin 0.40 mg/dL (0.1-1.2) 08/11/17 07:13 AST 14 units/L (5-40) 08/11/17 07:13 ALT 12 units/L (7-56) 08/11/17 07:13 Alkaline Phosphatase 89 units/L (35-129) 08/11/17 07:13 Total Protein 6.6 g/dL (6.3-8.2) 08/11/17 07:13 Albumin 4.1 g/dL (3.9-5) 08/11/17 07:13 Albumin/Globulin Ratio 1.6 % 08/11/17 07:13 Triglycerides 720 mg/dL (2-149) H 08/10/17 19:40 Cholesterol 417 mg/dL (50-199) H 08/10/17 19:40 LDL Cholesterol Direct TNR 08/10/17 19:40 HDL Cholesterol 36 mg/dL (40-59) L 08/10/17 19:40 Cholesterol/HDL Ratio 11.58 % 08/10/17 19:40 Urine Color Yellow (Yellow) 08/10/17 13:23 Urine Turbidity Clear (Clear) 08/10/17 13:23 Urine pH 5.0 (5.0-7.0) 08/10/17 13:23 Ur Specific Jackson 1.020 (1.003-1.030) 08/10/17 13:23 Urine Protein 100 mg/dl mg/dL (Negative) 08/10/17 13:23 Urine Glucose (UA) >=500 mg/dL (Negative) 08/10/17 13:23 Urine Ketones 80 mg/dL (Negative) 08/10/17 13:23 Urine Blood Sm (Negative) 08/10/17 13:23 Urine Nitrite Neg (Negative) 08/10/17 13:23 Urine Bilirubin Neg (Negative) 08/10/17 13:23 Urine Urobilinogen < 2.0 mg/dL (<2.0) 08/10/17 13:23 Ur Leukocyte Esterase Neg (Negative) 08/10/17 13:23 Urine WBC (Auto) < 1.0 /HPF (0.0-6.0) 08/10/17 13:23 Urine RBC (Auto) 3.0 /HPF (0.0-6.0) 08/10/17 13:23 U Epithel Cells (Auto) < 1.0 /HPF (0-13.0) 08/10/17 13:23 Urine Bacteria (Auto) 2+ /HPF (Negative) 08/10/17 13:23 Granular Casts 10 /LPF 08/10/17 13:23 Urine Mucus Few /HPF 08/10/17 13:23 Urine Creatinine 27.7 mg/dL (0.1-20.0) H 08/10/17 16:15 Urine Microalbumin 16.5 mg/dL (0.1-34.0) 08/10/17 16:15 Microalb/Creat Ratio 595.6 ug/mg 08/10/17 16:15
[2017-08-12] MEDS: TRICOR PO SCH (10:02)
[2017-08-12] MEDS ORDERED: CHLORASEPTIC MM PRN (10:30)
--- NOTE | 2017-08-12 13:42 | Discharge Summary ---
Providers - Providers Date of Admission: 08/10/17 13:43 Date of discharge: 08/12/17 Attending physician: SKIP DENISE 08/10/17 13:44 Consult to Physician [CONS] Routine Consulting Provider: SAMI MIRAMONTES Reason For Exam: DKA on insulin gtt, Bicarb of 6, PH of 7 Place consult to:: Dr. Miramontes Notified:: Answering Service Phone number called:: [phone] Was contact made?: Yes If yes, spoke with:: Dr. Miramontes Time called:: 23:21 Primary care physician: EDMAR HANEY Hospitalization Reason for admission: DKA Condition: Stable Hospital course: This is a 42 yo male who presented through the ER with dx of DKA that was treated with IV insulin and IVF hydration. PT. was transitioned back to his home insulin regimen when the anion gap closed. BG levels reurned back to normaol. PT. should f/u with PCP Disposition: DC-01 TO HOME OR SELFCARE Time spent for discharge: 31 - Discharge Diagnoses (1) Diabetic ketoacidosis Status: Acute Qualifiers: Diabetes mellitus type: type 1 Diabetes mellitus complication detail: without coma Qualified Code(s): E10.10 - Type 1 diabetes mellitus with ketoacidosis without coma Core Measure Documentation - Palliative Care Palliative Care/ Comfort Measures: Not Applicable - Core Measures Any of the following diagnoses?: none Exam - Constitutional Vitals: Temp Pulse Resp BP Pulse Ox 96.5 F L 64 18 97/64 99 08/12/17 11:34 08/12/17 11:34 08/12/17 11:34 08/12/17 11:34 08/12/17 11:34 General appearance: Present: no acute distress, well-nourished - EENT Eyes: Present: PERRL ENT: hearing intact, clear oral mucosa - Neck Neck: Present: supple, normal ROM - Respiratory Respiratory effort: normal Respiratory: bilateral: CTA - Cardiovascular Heart Sounds: Present: S1 & S2. Absent: rub, click - Extremities Extremities: pulses symmetrical, No edema Peripheral Pulses: within normal limits - Abdominal General gastrointestinal: Present: soft, non-tender, non-distended, normal bowel sounds Male genitourinary: Present: normal - Integumentary Integumentary: Present: clear, warm, dry - Musculoskeletal Musculoskeletal: gait normal, strength equal bilaterally - Psychiatric Psychiatric: appropriate mood/affect, intact judgment & insight - Neurologic Neurologic: CNII-XII intact, moves all extremities Plan Activity: no restrictions Weight Bearing Status: Full Weight Bearing Diet: diabetic Follow up with: EDMAR HANEY MD [Primary Care Provider] - 3-5 Days
[2017-08-12 15:34] VITALS: BP 111/65
== END 2017-08-12 16:00 | disposition home or self-care (01) | DRG 638 ==
LOC: ED 09:51 → CC1 13:43 → 3A 08-11 20:58
PROVIDERS: ADMIT Internal Medicine; ATTEND Hospitalist
DX: E11.10 Type 2 diabetes mellitus with ketoacidosis without coma (principal); R65.10 Systemic inflammatory response syndrome (SIRS) of non-infectious origin without acute organ dysfunction; E87.5 Hyperkalemia; E78.1 Pure hyperglyceridemia; D72.829 Elevated white blood cell count, unspecified; Z79.4 Long term (current) use of insulin; Z82.49 Family history of ischemic heart disease and other diseases of the circulatory system
CPT/HCPCS: 36415; 80048; 80053; 80061; 81001; 82043; 82805; 82962; 83036; 83735; 84100; 85007; 85025; 99285; A9270-GY; J1644; J1815; J2543; J7030

== ENCOUNTER 2017-08-20 11:23 | Inpatient (IN) | payer SELFPAY ==
[2017-08-20 12:02] LABS: Mean Corpuscular HGB Conc 31 % (32-34); Mean Corpuscular Hemoglobin 28 pg (28-32); Mean Corpuscular Volume 91 fl (84-94); Platelet Count 219 K/mm3 (140-440); Red Blood Count 5.89 M/mm3 (3.65-5.03); Red Cell Distribution Width 15.2 % (13.2-15.2)
[2017-08-20 12:05] LABS: Hematocrit 53.5 % (35.5-45.6); Hemoglobin 16.4 gm/dl (11.8-15.2)
[2017-08-20] MEDS ORDERED: ZOFRAN IV ONE (12:11)
[2017-08-20] MEDS ORDERED: NACL 0.9% 1000 ML 1,000 ML IV ONE ×3 (12:11→13:38)
[2017-08-20 12:30] LABS: BUN/Creatinine Ratio 12; Blood Urea Nitrogen 15 mg/dL (9-20); Calcium 9.2 mg/dL (8.4-10.2); Hemolysis Index 34
--- NOTE | 2017-08-20 12:37 | Emergency Department Report ---
ED N/V/D HPI - General Chief complaint: Hyperglycemia Stated complaint: HYPERGLYCEMIA Time Seen by Provider: 08/20/17 11:54 Source: patient, EMS Mode of arrival: Stretcher Limitations: No Limitations - History of Present Illness Initial comments: 42-year-old male with a past medical history insulin-dependent diabetes and previous history of DKA in the past including being recently discharged last week for DKA presents to the hospital with elevated glucose, increased thirst, nausea, vomiting, and polyuria. Patient was discharged last week and states his sugars have been running high since. He began to feel bad yesterday and developed nausea, vomiting, by mouth intolerance, and abnormal respirations. Patient has lower back pain rated a 4/10 in intensity. Patient states he's been compliant with his medication. - Related Data Home Medications Medication Instructions Recorded Confirmed Last Taken Insulin Detemir [Levemir VIAL] 30 units SUB-Q DAILY 08/10/17 08/20/17 Unknown Insulin Lispro Prot/Lispro 30 units SUB-Q BID 08/10/17 08/20/17 Unknown [HumaLOG Mix 75/25 Vial] Allergies Allergy/AdvReac Type Severity Reaction Status Date / Time No Known Allergies Allergy Verified 08/10/17 11:24 ED Review of Systems ROS: Stated complaint: HYPERGLYCEMIA Other details as noted in HPI Comment: All other systems reviewed and negative Other: Constitutional: No fevers chills o Eyes: No eye pain visual changes ENT: No ear pain or throat pain Neck: Denies pain Respiratory: Denies cough wheezing Cardiovascular: Denies chest pain, palpitations, syncope GI: Denies abdominal pain, nausea, vomiting, diarrhea, constipation, melena hematochezia : Denies dysuria, urinary frequency, or urgency Musculoskeletal: + back pain Skin: Denies rash, lesions, erythema Neurologic: Denies headache, numbness, weakness Psychiatric: Denies suicidal ideation, hallucinations Hematological/lymphatic: Denies easy bruising, lymphadenopathy ED Past Medical Hx - Past Medical History Previous Medical History?: Yes Hx Diabetes: Yes - Surgical History Past Surgical History?: No - Social History Smoking Status: Current Every Day Smoker Substance Use Type: Marijuana - Medications Home Medications: Home Medications Medication Instructions Recorded Confirmed Last Taken Type Insulin Detemir [Levemir VIAL] 30 units SUB-Q DAILY 08/10/17 08/20/17 Unknown History Insulin Lispro Prot/Lispro 30 units SUB-Q BID 08/10/17 08/20/17 Unknown History [HumaLOG Mix 75/25 Vial] ED Physical Exam - General Limitations: No Limitations - Other Other exam information: General: No limitations Head exam: Atraumatic, normocephalic Eyes exam: Normal appearance ENT: Dry mucous membrane Neck exam: Normal inspection, full range of motion, no meningismus nontender Respiratory exam: Full small respirations, clear to auscultation Cardiovascular: Normal rate and rhythm Abdomen: Soft, nondistended, and nontender, with normal bowel sounds, no rebound, or guarding Extremity: Full range of motion normal inspection no deformity Back: Normal Inspection Neurologic: Alert, oriented x3, cranial nerves intact, no motor or sensory deficit Psychiatric: normal affect, normal mood Skin: Warm, dry, intact ED Course Vital Signs 08/20/17 08/20/17 08/20/17 11:59 13:01 13:16 Temperature 98.1 F Pulse Rate 92 H Respiratory 18 Rate Blood Pressure 150/89 150/89 Blood Pressure 140/93 [Right] O2 Sat by Pulse 93 100 100 Oximetry 08/20/17 08/20/17 08/20/17 13:26 13:30 13:46 Temperature Pulse Rate 88 96 H Respiratory 19 19 Rate Blood Pressure 138/83 138/83 Blood Pressure [Right] O2 Sat by Pulse 100 100 100 Oximetry 08/20/17 08/20/17 08/20/17 14:00 14:16 14:30 Temperature Pulse Rate 85 87 87 Respiratory 21 20 18 Rate Blood Pressure 123/80 150/89 128/84 Blood Pressure [Right] O2 Sat by Pulse 99 100 100 Oximetry 08/20/17 08/20/17 08/20/17 14:46 15:00 15:16 Temperature Pulse Rate 75 76 81 Respiratory 17 17 20 Rate Blood Pressure 128/84 123/81 123/81 Blood Pressure [Right] O2 Sat by Pulse 100 100 100 Oximetry 08/20/17 08/20/17 08/20/17 15:30 15:46 16:00 Temperature Pulse Rate 80 82 78 Respiratory 16 18 18 Rate Blood Pressure 124/81 123/81 124/79 Blood Pressure [Right] O2 Sat by Pulse 100 100 99 Oximetry 08/20/17 08/20/17 08/20/17 16:16 16:30 16:46 Temperature Pulse Rate 87 83 79 Respiratory 14 22 17 Rate Blood Pressure 124/79 125/84 125/84 Blood Pressure [Right] O2 Sat by Pulse 100 100 100 Oximetry 08/20/17 08/20/17 08/20/17 17:00 17:16 17:30 Temperature Pulse Rate 79 70 67 Respiratory 16 19 18 Rate Blood Pressure 118/80 118/80 120/74 Blood Pressure [Right] O2 Sat by Pulse 100 100 100 Oximetry 08/20/17 08/21/17 08/21/17 23:24 03:00 04:00 Temperature Pulse Rate 64 68 70 Respiratory 16 18 16 Rate Blood Pressure Blood Pressure 105/65 98/62 98/65 [Right] O2 Sat by Pulse 100 98 96 Oximetry 08/21/17 08/21/17 08/21/17 05:00 05:54 06:00 Temperature Pulse Rate 65 65 65 Respiratory 16 10 L 13 Rate Blood Pressure 96/65 Blood Pressure 104/67 96/65 [Right] O2 Sat by Pulse 98 99 100 Oximetry 08/21/17 08/21/17 08/21/17 06:16 06:30 06:45 Temperature Pulse Rate 65 62 73 Respiratory 10 L 11 L 15 Rate Blood Pressure 95/68 92/68 92/68 Blood Pressure [Right] O2 Sat by Pulse 100 98 97 Oximetry 08/21/17 08/21/17 08/21/17 07:00 07:15 07:30 Temperature Pulse Rate 63 62 66 Respiratory 12 12 12 Rate Blood Pressure 98/65 92/68 107/66 Blood Pressure [Right] O2 Sat by Pulse 98 99 Oximetry 08/21/17 08/21/17 08/21/17 07:45 08:00 08:15 Temperature Pulse Rate 71 69 77 Respiratory 11 L 9 L 12 Rate Blood Pressure 107/66 94/64 107/66 Blood Pressure [Right] O2 Sat by Pulse 98 99 100 Oximetry 08/21/17 08/21/17 08/21/17 08:30 08:45 09:00 Temperature Pulse Rate 63 63 57 L Respiratory 13 11 L 12 Rate Blood Pressure 102/63 102/63 102/63 Blood Pressure [Right] O2 Sat by Pulse 99 100 99 Oximetry 08/21/17 08/21/17 08/21/17 09:15 09:30 09:45 Temperature Pulse Rate 65 60 63 Respiratory 13 13 13 Rate Blood Pressure 102/63 103/70 103/70 Blood Pressure [Right] O2 Sat by Pulse 100 97 100 Oximetry 08/21/17 08/21/17 08/21/17 10:00 10:15 10:30 Temperature Pulse Rate 64 61 51 L Respiratory 15 12 11 L Rate Blood Pressure 107/75 103/70 105/74 Blood Pressure [Right] O2 Sat by Pulse 100 100 100 Oximetry 08/21/17 08/21/17 08/21/17 10:45 11:00 11:15 Temperature Pulse Rate 52 L 53 L 61 Respiratory 12 12 11 L Rate Blood Pressure 105/74 99/70 105/74 Blood Pressure [Right] O2 Sat by Pulse 100 100 100 Oximetry 08/21/17 08/21/17 08/21/17 11:30 11:45 12:00 Temperature Pulse Rate 55 L 53 L 55 L Respiratory 13 10 L 11 L Rate Blood Pressure 99/70 99/70 104/65 Blood Pressure [Right] O2 Sat by Pulse 100 100 100 Oximetry 08/21/17 08/21/17 08/21/17 12:15 12:30 12:45 Temperature Pulse Rate 61 54 L 54 L Respiratory 14 11 L 12 Rate Blood Pressure 104/65 103/68 103/68 Blood Pressure [Right] O2 Sat by Pulse 100 100 100 Oximetry 08/21/17 08/21/17 08/21/17 13:00 13:15 13:30 Temperature Pulse Rate 57 L 66 62 Respiratory 11 L 11 L 15 Rate Blood Pressure 97/67 97/67 107/72 Blood Pressure [Right] O2 Sat by Pulse 100 100 Oximetry 08/21/17 08/21/17 08/21/17 13:45 14:00 14:15 Temperature Pulse Rate 61 62 63 Respiratory 11 L 12 11 L Rate Blood Pressure 107/72 102/69 102/69 Blood Pressure [Right] O2 Sat by Pulse 100 100 Oximetry 08/21/17 08/21/17 08/21/17 14:30 14:45 15:00 Temperature Pulse Rate 78 70 60 Respiratory 11 L 10 L 11 L Rate Blood Pressure 108/69 108/69 102/71 Blood Pressure [Right] O2 Sat by Pulse 100 100 100 Oximetry 08/21/17 08/21/17 08/21/17 15:15 15:30 15:45 Temperature Pulse Rate 75 68 64 Respiratory 9 L 10 L 9 L Rate Blood Pressure 102/71 104/75 104/75 Blood Pressure [Right] O2 Sat by Pulse 100 100 Oximetry 08/21/17 08/21/17 16:00 16:42 Temperature 98.3 F Pulse Rate 64 63 Respiratory 14 18 Rate Blood Pressure 107/71 93/57 Blood Pressure [Right] O2 Sat by Pulse 100 97 Oximetry - Reevaluation(s) Reevaluation #1: 08/20 pt sx improved with ed treatment ED Medical Decision Making - Lab Data Result diagrams: 08/20/17 11:45 08/21/17 13:10 Lab Results 08/20/17 08/20/17 08/20/17 Range/Units 11:45 11:45 11:45 WBC 13.9 H (4.5-11.0) K/mm3 RBC 5.89 H (3.65-5.03) M/mm3 Hgb 16.4 H (11.8-15.2) gm/dl Hct 53.5 H (35.5-45.6) % MCV 91 (84-94) fl MCH 28 (28-32) pg MCHC 31 L (32-34) % RDW 15.2 (13.2-15.2) % Plt Count 219 (140-440) K/mm3 Add Manual Diff Complete Total Counted 100 Seg Neuts % (Manual) 76.0 H (40.0-70.0) % Band Neutrophils % 0 % Lymphocytes % (Manual) 15.0 (13.4-35.0) % Reactive Lymphs % (Man) 0 % Monocytes % (Manual) 9.0 H (0.0-7.3) % Eosinophils % (Manual) 0 (0.0-4.3) % Basophils % (Manual) 0 (0.0-1.8) % Metamyelocytes % 0 % Myelocytes % 0 % Promyelocytes % 0 % Blast Cells % 0 % Nucleated RBC % Not Reportable Seg Neutrophils # Man 10.6 H (1.8-7.7) K/mm3 Band Neutrophils # 0.0 K/mm3 Lymphocytes # (Manual) 2.1 (1.2-5.4) K/mm3 Abs React Lymphs (Man) 0.0 K/mm3 Monocytes # (Manual) 1.3 H (0.0-0.8) K/mm3 Eosinophils # (Manual) 0.0 (0.0-0.4) K/mm3 Basophils # (Manual) 0.0 (0.0-0.1) K/mm3 Metamyelocytes # 0.0 K/mm3 Myelocytes # 0.0 K/mm3 Promyelocytes # 0.0 K/mm3 Blast Cells # 0.0 K/mm3 WBC Morphology Not Reportable Hypersegmented Neuts Not Reportable Hyposegmented Neuts Not Reportable Hypogranular Neuts Not Reportable Smudge Cells Not Reportable Toxic Granulation Not Reportable Toxic Vacuolation Not Reportable Dohle Bodies Not Reportable Pelger-Huet Anomaly Not Reportable Mary Rods Not Reportable Platelet Estimate Consistent w auto Clumped Platelets Not Reportable Plt Clumps, EDTA Not Reportable Large Platelets Not Reportable Giant Platelets Not Reportable Platelet Satelliting Not Reportable Plt Morphology Comment Not Reportable RBC Morphology Not Reportable Dimorphic RBCs Not Reportable Polychromasia Not Reportable Hypochromasia Not Reportable Poikilocytosis Not Reportable Anisocytosis 1+ Microcytosis Not Reportable Macrocytosis Not Reportable Spherocytes Not Reportable Pappenheimer Bodies Not Reportable Sickle Cells Not Reportable Target Cells Not Reportable Tear Drop Cells Not Reportable Ovalocytes Not Reportable Helmet Cells Not Reportable [place] Bodies Not Reportable [place] Rings Not Reportable Blanca Cells Not Reportable Bite Cells Not Reportable Crenated Cell Not Reportable Elliptocytes Not Reportable Acanthocytes (Spur) Not Reportable Rouleaux Not Reportable Hemoglobin C Crystals Not Reportable Schistocytes Not Reportable Malaria parasites Not Reportable Fernando Bodies Not Reportable Hem Pathologist Commnt No VBG pH 6.938 L* (7.320-7.420) Sodium 132 L (137-145) mmol/L Potassium 5.4 H (3.6-5.0) mmol/L Chloride 88.4 L (98-107) mmol/L Carbon Dioxide 4 L* (22-30) mmol/L Anion Gap 45 mmol/L BUN 15 (9-20) mg/dL Creatinine 1.3 (0.8-1.5) mg/dL Estimated GFR > 60 ml/min BUN/Creatinine Ratio 12 % Glucose 448 H (75-100) mg/dL POC Glucose (70-105) Calcium 9.2 (8.4-10.2) mg/dL Phosphorus (2.5-4.5) mg/dL Magnesium (1.7-2.3) mg/dL Total Bilirubin (0.1-1.2) mg/dL Direct Bilirubin (0-0.2) mg/dL Indirect Bilirubin mg/dL AST (5-40) units/L ALT (7-56) units/L Alkaline Phosphatase (35-129) units/L Total Creatine Kinase (55-170) units/L CK-MB (CK-2) (0.0-4.0) ng/mL CK-MB (CK-2) Rel Index (0-4) Troponin T (0.00-0.029) ng/mL Total Protein (6.3-8.2) g/dL Albumin (3.9-5) g/dL Albumin/Globulin Ratio % Lipase (13-60) units/L Urine Color (Yellow) Urine Turbidity (Clear) Urine pH (5.0-7.0) Ur Specific [place] (1.003-1.030) Urine Protein (Negative) mg/dL Urine Glucose (UA) (Negative) mg/dL Urine Ketones (Negative) mg/dL Urine Blood (Negative) Urine Nitrite (Negative) Urine Bilirubin (Negative) Urine Urobilinogen (<2.0) mg/dL Ur Leukocyte Esterase (Negative) Urine WBC (Auto) (0.0-6.0) /HPF Urine RBC (Auto) (0.0-6.0) /HPF U Epithel Cells (Auto) (0-13.0) /HPF Urine Mucus /HPF 08/20/17 08/20/17 08/20/17 Range/Units 11:45 11:45 13:12 WBC (4.5-11.0) K/mm3 RBC (3.65-5.03) M/mm3 Hgb (11.8-15.2) gm/dl Hct (35.5-45.6) % MCV (84-94) fl MCH (28-32) pg MCHC (32-34) % RDW (13.2-15.2) % Plt Count (140-440) K/mm3 Add Manual Diff Total Counted Seg Neuts % (Manual) (40.0-70.0) % Band Neutrophils % % Lymphocytes % (Manual) (13.4-35.0) % Reactive Lymphs % (Man) % Monocytes % (Manual) (0.0-7.3) % Eosinophils % (Manual) (0.0-4.3) % Basophils % (Manual) (0.0-1.8) % Metamyelocytes % % Myelocytes % % Promyelocytes % % Blast Cells % % Nucleated RBC % Seg Neutrophils # Man (1.8-7.7) K/mm3 Band Neutrophils # K/mm3 Lymphocytes # (Manual) (1.2-5.4) K/mm3 Abs React Lymphs (Man) K/mm3 Monocytes # (Manual) (0.0-0.8) K/mm3 Eosinophils # (Manual) (0.0-0.4) K/mm3 Basophils # (Manual) (0.0-0.1) K/mm3 Metamyelocytes # K/mm3 Myelocytes # K/mm3 Promyelocytes # K/mm3 Blast Cells # K/mm3 WBC Morphology Hypersegmented Neuts Hyposegmented Neuts Hypogranular Neuts Smudge Cells Toxic Granulation Toxic Vacuolation Dohle Bodies Pelger-Huet Anomaly Mary Rods Platelet Estimate Clumped Platelets Plt Clumps, EDTA Large Platelets Giant Platelets Platelet Satelliting Plt Morphology Comment RBC Morphology Dimorphic RBCs Polychromasia Hypochromasia Poikilocytosis Anisocytosis Microcytosis Macrocytosis Spherocytes Pappenheimer Bodies Sickle Cells Target Cells Tear Drop Cells Ovalocytes Helmet Cells [place] Bodies [place] Rings Blanca Cells Bite Cells Crenated Cell Elliptocytes Acanthocytes (Spur) Rouleaux Hemoglobin C Crystals Schistocytes Malaria parasites Fernando Bodies Hem Pathologist Commnt VBG pH (7.320-7.420) Sodium (137-145) mmol/L Potassium (3.6-5.0) mmol/L Chloride (98-107) mmol/L Carbon Dioxide (22-30) mmol/L Anion Gap mmol/L BUN (9-20) mg/dL Creatinine (0.8-1.5) mg/dL Estimated GFR ml/min BUN/Creatinine Ratio % Glucose (75-100) mg/dL POC Glucose (70-105) Calcium (8.4-10.2) mg/dL Phosphorus 5.70 H (2.5-4.5) mg/dL Magnesium 2.60 H (1.7-2.3) mg/dL Total Bilirubin < 0.20 (0.1-1.2) mg/dL Direct Bilirubin 0.2 (0-0.2) mg/dL Indirect Bilirubin 0.0 mg/dL AST 14 (5-40) units/L ALT 13 (7-56) units/L Alkaline Phosphatase 109 (35-129) units/L Total Creatine Kinase 83 (55-170) units/L CK-MB (CK-2) 2.2 (0.0-4.0) ng/mL CK-MB (CK-2) Rel Index 2.6 (0-4) Troponin T < 0.010 (0.00-0.029) ng/mL Total Protein 8.6 H (6.3-8.2) g/dL Albumin 5.2 H (3.9-5) g/dL Albumin/Globulin Ratio 1.5 % Lipase 30 (13-60) units/L Urine Color Yellow (Yellow) Urine Turbidity Clear (Clear) Urine pH 5.0 (5.0-7.0) Ur Specific [place] 1.018 (1.003-1.030) Urine Protein 100 mg/dl (Negative) mg/dL Urine Glucose (UA) >=500 (Negative) mg/dL Urine Ketones 80 (Negative) mg/dL Urine Blood Sm (Negative) Urine Nitrite Neg (Negative) Urine Bilirubin Neg (Negative) Urine Urobilinogen < 2.0 (<2.0) mg/dL Ur Leukocyte Esterase Neg (Negative) Urine WBC (Auto) 1.0 (0.0-6.0) /HPF Urine RBC (Auto) < 1.0 (0.0-6.0) /HPF U Epithel Cells (Auto) 1.0 (0-13.0) /HPF Urine Mucus Few /HPF 08/20/17 08/20/17 08/20/17 Range/Units 14:17 15:16 15:40 WBC (4.5-11.0) K/mm3 RBC (3.65-5.03) M/mm3 Hgb (11.8-15.2) gm/dl Hct (35.5-45.6) % MCV (84-94) fl MCH (28-32) pg MCHC (32-34) % RDW (13.2-15.2) % Plt Count (140-440) K/mm3 Add Manual Diff Total Counted Seg Neuts % (Manual) (40.0-70.0) % Band Neutrophils % % Lymphocytes % (Manual) (13.4-35.0) % Reactive Lymphs % (Man) % Monocytes % (Manual) (0.0-7.3) % Eosinophils % (Manual) (0.0-4.3) % Basophils % (Manual) (0.0-1.8) % Metamyelocytes % % Myelocytes % % Promyelocytes % % Blast Cells % % Nucleated RBC % Seg Neutrophils # Man (1.8-7.7) K/mm3 Band Neutrophils # K/mm3 Lymphocytes # (Manual) (1.2-5.4) K/mm3 Abs React Lymphs (Man) K/mm3 Monocytes # (Manual) (0.0-0.8) K/mm3 Eosinophils # (Manual) (0.0-0.4) K/mm3 Basophils # (Manual) (0.0-0.1) K/mm3 Metamyelocytes # K/mm3 Myelocytes # K/mm3 Promyelocytes # K/mm3 Blast Cells # K/mm3 WBC Morphology Hypersegmented Neuts Hyposegmented Neuts Hypogranular Neuts Smudge Cells Toxic Granulation Toxic Vacuolation Dohle Bodies Pelger-Huet Anomaly Mary Rods Platelet Estimate Clumped Platelets Plt Clumps, EDTA Large Platelets Giant Platelets Platelet Satelliting Plt Morphology Comment RBC Morphology Dimorphic RBCs Polychromasia Hypochromasia Poikilocytosis Anisocytosis Microcytosis Macrocytosis Spherocytes Pappenheimer Bodies Sickle Cells Target Cells Tear Drop Cells Ovalocytes Helmet Cells [place] Bodies [place] Rings Patrice Cells Bite Cells Crenated Cell Elliptocytes Acanthocytes (Spur) Rouleaux Hemoglobin C Crystals Schistocytes Malaria parasites Fernando Bodies Hem Pathologist Commnt VBG pH (7.320-7.420) Sodium 130 L (137-145) mmol/L Potassium 4.5 (3.6-5.0) mmol/L Chloride 95.3 L (98-107) mmol/L Carbon Dioxide 4 L* (22-30) mmol/L Anion Gap 35 mmol/L BUN 14 (9-20) mg/dL Creatinine 0.9 (0.8-1.5) mg/dL Estimated GFR > 60 ml/min BUN/Creatinine Ratio 16 % Glucose 268 H (75-100) mg/dL POC Glucose 260 H 241 H (70-105) Calcium 7.9 L (8.4-10.2) mg/dL Phosphorus (2.5-4.5) mg/dL Magnesium (1.7-2.3) mg/dL Total Bilirubin (0.1-1.2) mg/dL Direct Bilirubin (0-0.2) mg/dL Indirect Bilirubin mg/dL AST (5-40) units/L ALT (7-56) units/L Alkaline Phosphatase (35-129) units/L Total Creatine Kinase (55-170) units/L CK-MB (CK-2) (0.0-4.0) ng/mL CK-MB (CK-2) Rel Index (0-4) Troponin T (0.00-0.029) ng/mL Total Protein (6.3-8.2) g/dL Albumin (3.9-5) g/dL Albumin/Globulin Ratio % Lipase (13-60) units/L Urine Color (Yellow) Urine Turbidity (Clear) Urine pH (5.0-7.0) Ur Specific [place] (1.003-1.030) Urine Protein (Negative) mg/dL Urine Glucose (UA) (Negative) mg/dL Urine Ketones (Negative) mg/dL Urine Blood (Negative) Urine Nitrite (Negative) Urine Bilirubin (Negative) Urine Urobilinogen (<2.0) mg/dL Ur Leukocyte Esterase (Negative) Urine WBC (Auto) (0.0-6.0) /HPF Urine RBC (Auto) (0.0-6.0) /HPF U Epithel Cells (Auto) (0-13.0) /HPF Urine Mucus /HPF 08/20/17 08/20/17 08/20/17 Range/Units 16:20 17:23 19:10 WBC (4.5-11.0) K/mm3 RBC (3.65-5.03) M/mm3 Hgb (11.8-15.2) gm/dl Hct (35.5-45.6) % MCV (84-94) fl MCH (28-32) pg MCHC (32-34) % RDW (13.2-15.2) % Plt Count (140-440) K/mm3 Add Manual Diff Total Counted Seg Neuts % (Manual) (40.0-70.0) % Band Neutrophils % % Lymphocytes % (Manual) (13.4-35.0) % Reactive Lymphs % (Man) % Monocytes % (Manual) (0.0-7.3) % Eosinophils % (Manual) (0.0-4.3) % Basophils % (Manual) (0.0-1.8) % Metamyelocytes % % Myelocytes % % Promyelocytes % % Blast Cells % % Nucleated RBC % Seg Neutrophils # Man (1.8-7.7) K/mm3 Band Neutrophils # K/mm3 Lymphocytes # (Manual) (1.2-5.4) K/mm3 Abs React Lymphs (Man) K/mm3 Monocytes # (Manual) (0.0-0.8) K/mm3 Eosinophils # (Manual) (0.0-0.4) K/mm3 Basophils # (Manual) (0.0-0.1) K/mm3 Metamyelocytes # K/mm3 Myelocytes # K/mm3 Promyelocytes # K/mm3 Blast Cells # K/mm3 WBC Morphology Hypersegmented Neuts Hyposegmented Neuts Hypogranular Neuts Smudge Cells Toxic Granulation Toxic Vacuolation Dohle Bodies Pelger-Huet Anomaly Mary Rods Platelet Estimate Clumped Platelets Plt Clumps, EDTA Large Platelets Giant Platelets Platelet Satelliting Plt Morphology Comment RBC Morphology Dimorphic RBCs Polychromasia Hypochromasia Poikilocytosis Anisocytosis Microcytosis Macrocytosis Spherocytes Pappenheimer Bodies Sickle Cells Target Cells Tear Drop Cells Ovalocytes Helmet Cells [place] Bodies [place] Rings Blanca Cells Bite Cells Crenated Cell Elliptocytes Acanthocytes (Spur) Rouleaux Hemoglobin C Crystals Schistocytes Malaria parasites Fernando Bodies Hem Pathologist Commnt VBG pH (7.320-7.420) Sodium (137-145) mmol/L Potassium (3.6-5.0) mmol/L Chloride (98-107) mmol/L Carbon Dioxide (22-30) mmol/L Anion Gap mmol/L BUN (9-20) mg/dL Creatinine (0.8-1.5) mg/dL Estimated GFR ml/min BUN/Creatinine Ratio % Glucose (75-100) mg/dL POC Glucose 221 H 187 H 164 H (70-105) Calcium (8.4-10.2) mg/dL Phosphorus (2.5-4.5) mg/dL Magnesium (1.7-2.3) mg/dL Total Bilirubin (0.1-1.2) mg/dL Direct Bilirubin (0-0.2) mg/dL Indirect Bilirubin mg/dL AST (5-40) units/L ALT (7-56) units/L Alkaline Phosphatase (35-129) units/L Total Creatine Kinase (55-170) units/L CK-MB (CK-2) (0.0-4.0) ng/mL CK-MB (CK-2) Rel Index (0-4) Troponin T (0.00-0.029) ng/mL Total Protein (6.3-8.2) g/dL Albumin (3.9-5) g/dL Albumin/Globulin Ratio % Lipase (13-60) units/L Urine Color (Yellow) Urine Turbidity (Clear) Urine pH (5.0-7.0) Ur Specific [place] (1.003-1.030) Urine Protein (Negative) mg/dL Urine Glucose (UA) (Negative) mg/dL Urine Ketones (Negative) mg/dL Urine Blood (Negative) Urine Nitrite (Negative) Urine Bilirubin (Negative) Urine Urobilinogen (<2.0) mg/dL Ur Leukocyte Esterase (Negative) Urine WBC (Auto) (0.0-6.0) /HPF Urine RBC (Auto) (0.0-6.0) /HPF U Epithel Cells (Auto) (0-13.0) /HPF Urine Mucus /HPF 08/20/17 08/20/17 08/20/17 Range/Units 20:38 21:46 22:29 WBC (4.5-11.0) K/mm3 RBC (3.65-5.03) M/mm3 Hgb (11.8-15.2) gm/dl Hct (35.5-45.6) % MCV (84-94) fl MCH (28-32) pg MCHC (32-34) % RDW (13.2-15.2) % Plt Count (140-440) K/mm3 Add Manual Diff Total Counted Seg Neuts % (Manual) (40.0-70.0) % Band Neutrophils % % Lymphocytes % (Manual) (13.4-35.0) % Reactive Lymphs % (Man) % Monocytes % (Manual) (0.0-7.3) % Eosinophils % (Manual) (0.0-4.3) % Basophils % (Manual) (0.0-1.8) % Metamyelocytes % % Myelocytes % % Promyelocytes % % Blast Cells % % Nucleated RBC % Seg Neutrophils # Man (1.8-7.7) K/mm3 Band Neutrophils # K/mm3 Lymphocytes # (Manual) (1.2-5.4) K/mm3 Abs React Lymphs (Man) K/mm3 Monocytes # (Manual) (0.0-0.8) K/mm3 Eosinophils # (Manual) (0.0-0.4) K/mm3 Basophils # (Manual) (0.0-0.1) K/mm3 Metamyelocytes # K/mm3 Myelocytes # K/mm3 Promyelocytes # K/mm3 Blast Cells # K/mm3 WBC Morphology Hypersegmented Neuts Hyposegmented Neuts Hypogranular Neuts Smudge Cells Toxic Granulation Toxic Vacuolation Dohle Bodies Pelger-Huet Anomaly Mary Rods Platelet Estimate Clumped Platelets Plt Clumps, EDTA Large Platelets Giant Platelets Platelet Satelliting Plt Morphology Comment RBC Morphology Dimorphic RBCs Polychromasia Hypochromasia Poikilocytosis Anisocytosis Microcytosis Macrocytosis Spherocytes Pappenheimer Bodies Sickle Cells Target Cells Tear Drop Cells Ovalocytes Helmet Cells [place] Bodies [place] Rings Patrice Cells Bite Cells Crenated Cell Elliptocytes Acanthocytes (Spur) Rouleaux Hemoglobin C Crystals Schistocytes Malaria parasites Fernando Bodies Hem Pathologist Commnt VBG pH (7.320-7.420) Sodium 131 L (137-145) mmol/L Potassium 4.2 (3.6-5.0) mmol/L Chloride 100.4 (98-107) mmol/L Carbon Dioxide 13 L D (22-30) mmol/L Anion Gap 22 mmol/L BUN 10 (9-20) mg/dL Creatinine 0.8 (0.8-1.5) mg/dL Estimated GFR > 60 ml/min BUN/Creatinine Ratio 13 % Glucose 168 H (75-100) mg/dL POC Glucose 156 H 161 H (70-105) Calcium 7.3 L (8.4-10.2) mg/dL Phosphorus (2.5-4.5) mg/dL Magnesium (1.7-2.3) mg/dL Total Bilirubin (0.1-1.2) mg/dL Direct Bilirubin (0-0.2) mg/dL Indirect Bilirubin mg/dL AST (5-40) units/L ALT (7-56) units/L Alkaline Phosphatase (35-129) units/L Total Creatine Kinase (55-170) units/L CK-MB (CK-2) (0.0-4.0) ng/mL CK-MB (CK-2) Rel Index (0-4) Troponin T (0.00-0.029) ng/mL Total Protein (6.3-8.2) g/dL Albumin (3.9-5) g/dL Albumin/Globulin Ratio % Lipase (13-60) units/L Urine Color (Yellow) Urine Turbidity (Clear) Urine pH (5.0-7.0) Ur Specific [place] (1.003-1.030) Urine Protein (Negative) mg/dL Urine Glucose (UA) (Negative) mg/dL Urine Ketones (Negative) mg/dL Urine Blood (Negative) Urine Nitrite (Negative) Urine Bilirubin (Negative) Urine Urobilinogen (<2.0) mg/dL Ur Leukocyte Esterase (Negative) Urine WBC (Auto) (0.0-6.0) /HPF Urine RBC (Auto) (0.0-6.0) /HPF U Epithel Cells (Auto) (0-13.0) /HPF Urine Mucus /HPF 08/20/17 08/20/17 08/21/17 Range/Units 23:13 23:17 00:26 WBC (4.5-11.0) K/mm3 RBC (3.65-5.03) M/mm3 Hgb (11.8-15.2) gm/dl Hct (35.5-45.6) % MCV (84-94) fl MCH (28-32) pg MCHC (32-34) % RDW (13.2-15.2) % Plt Count (140-440) K/mm3 Add Manual Diff Total Counted Seg Neuts % (Manual) (40.0-70.0) % Band Neutrophils % % Lymphocytes % (Manual) (13.4-35.0) % Reactive Lymphs % (Man) % Monocytes % (Manual) (0.0-7.3) % Eosinophils % (Manual) (0.0-4.3) % Basophils % (Manual) (0.0-1.8) % Metamyelocytes % % Myelocytes % % Promyelocytes % % Blast Cells % % Nucleated RBC % Seg Neutrophils # Man (1.8-7.7) K/mm3 Band Neutrophils # K/mm3 Lymphocytes # (Manual) (1.2-5.4) K/mm3 Abs React Lymphs (Man) K/mm3 Monocytes # (Manual) (0.0-0.8) K/mm3 Eosinophils # (Manual) (0.0-0.4) K/mm3 Basophils # (Manual) (0.0-0.1) K/mm3 Metamyelocytes # K/mm3 Myelocytes # K/mm3 Promyelocytes # K/mm3 Blast Cells # K/mm3 WBC Morphology Hypersegmented Neuts Hyposegmented Neuts Hypogranular Neuts Smudge Cells Toxic Granulation Toxic Vacuolation Dohle Bodies Pelger-Huet Anomaly Mary Rods Platelet Estimate Clumped Platelets Plt Clumps, EDTA Large Platelets Giant Platelets Platelet Satelliting Plt Morphology Comment RBC Morphology Dimorphic RBCs Polychromasia Hypochromasia Poikilocytosis Anisocytosis Microcytosis Macrocytosis Spherocytes Pappenheimer Bodies Sickle Cells Target Cells Tear Drop Cells Ovalocytes Helmet Cells [place] Bodies [place] Rings Patrice Cells Bite Cells Crenated Cell Elliptocytes Acanthocytes (Spur) Rouleaux Hemoglobin C Crystals Schistocytes Malaria parasites Fernando Bodies Hem Pathologist Commnt VBG pH (7.320-7.420) Sodium 126 L (137-145) mmol/L Potassium 3.9 (3.6-5.0) mmol/L Chloride 99.2 (98-107) mmol/L Carbon Dioxide 13 L (22-30) mmol/L Anion Gap 18 mmol/L BUN 9 (9-20) mg/dL Creatinine 0.7 L (0.8-1.5) mg/dL Estimated GFR > 60 ml/min BUN/Creatinine Ratio 13 % Glucose 170 H (75-100) mg/dL POC Glucose 153 H 153 H (70-105) Calcium 8.0 L (8.4-10.2) mg/dL Phosphorus (2.5-4.5) mg/dL Magnesium (1.7-2.3) mg/dL Total Bilirubin (0.1-1.2) mg/dL Direct Bilirubin (0-0.2) mg/dL Indirect Bilirubin mg/dL AST (5-40) units/L ALT (7-56) units/L Alkaline Phosphatase (35-129) units/L Total Creatine Kinase (55-170) units/L CK-MB (CK-2) (0.0-4.0) ng/mL CK-MB (CK-2) Rel Index (0-4) Troponin T (0.00-0.029) ng/mL Total Protein (6.3-8.2) g/dL Albumin (3.9-5) g/dL Albumin/Globulin Ratio % Lipase (13-60) units/L Urine Color (Yellow) Urine Turbidity (Clear) Urine pH (5.0-7.0) Ur Specific [place] (1.003-1.030) Urine Protein (Negative) mg/dL Urine Glucose (UA) (Negative) mg/dL Urine Ketones (Negative) mg/dL Urine Blood (Negative) Urine Nitrite (Negative) Urine Bilirubin (Negative) Urine Urobilinogen (<2.0) mg/dL Ur Leukocyte Esterase (Negative) Urine WBC (Auto) (0.0-6.0) /HPF Urine RBC (Auto) (0.0-6.0) /HPF U Epithel Cells (Auto) (0-13.0) /HPF Urine Mucus /HPF 08/21/17 08/21/17 08/21/17 Range/Units 01:19 02:15 03:18 WBC (4.5-11.0) K/mm3 RBC (3.65-5.03) M/mm3 Hgb (11.8-15.2) gm/dl Hct (35.5-45.6) % MCV (84-94) fl MCH (28-32) pg MCHC (32-34) % RDW (13.2-15.2) % Plt Count (140-440) K/mm3 Add Manual Diff Total Counted Seg Neuts % (Manual) (40.0-70.0) % Band Neutrophils % % Lymphocytes % (Manual) (13.4-35.0) % Reactive Lymphs % (Man) % Monocytes % (Manual) (0.0-7.3) % Eosinophils % (Manual) (0.0-4.3) % Basophils % (Manual) (0.0-1.8) % Metamyelocytes % % Myelocytes % % Promyelocytes % % Blast Cells % % Nucleated RBC % Seg Neutrophils # Man (1.8-7.7) K/mm3 Band Neutrophils # K/mm3 Lymphocytes # (Manual) (1.2-5.4) K/mm3 Abs React Lymphs (Man) K/mm3 Monocytes # (Manual) (0.0-0.8) K/mm3 Eosinophils # (Manual) (0.0-0.4) K/mm3 Basophils # (Manual) (0.0-0.1) K/mm3 Metamyelocytes # K/mm3 Myelocytes # K/mm3 Promyelocytes # K/mm3 Blast Cells # K/mm3 WBC Morphology Hypersegmented Neuts Hyposegmented Neuts Hypogranular Neuts Smudge Cells Toxic Granulation Toxic Vacuolation Dohle Bodies Pelger-Huet Anomaly Mary Rods Platelet Estimate Clumped Platelets Plt Clumps, EDTA Large Platelets Giant Platelets Platelet Satelliting Plt Morphology Comment RBC Morphology Dimorphic RBCs Polychromasia Hypochromasia Poikilocytosis Anisocytosis Microcytosis Macrocytosis Spherocytes Pappenheimer Bodies Sickle Cells Target Cells Tear Drop Cells Ovalocytes Helmet Cells [place] Bodies [place] Rings Blanca Cells Bite Cells Crenated Cell Elliptocytes Acanthocytes (Spur) Rouleaux Hemoglobin C Crystals Schistocytes Malaria parasites Fernando Bodies Hem Pathologist Commnt VBG pH (7.320-7.420) Sodium (137-145) mmol/L Potassium (3.6-5.0) mmol/L Chloride (98-107) mmol/L Carbon Dioxide (22-30) mmol/L Anion Gap mmol/L BUN (9-20) mg/dL Creatinine (0.8-1.5) mg/dL Estimated GFR ml/min BUN/Creatinine Ratio % Glucose (75-100) mg/dL POC Glucose 152 H 123 H 138 H (70-105) Calcium (8.4-10.2) mg/dL Phosphorus (2.5-4.5) mg/dL Magnesium (1.7-2.3) mg/dL Total Bilirubin (0.1-1.2) mg/dL Direct Bilirubin (0-0.2) mg/dL Indirect Bilirubin mg/dL AST (5-40) units/L ALT (7-56) units/L Alkaline Phosphatase (35-129) units/L Total Creatine Kinase (55-170) units/L CK-MB (CK-2) (0.0-4.0) ng/mL CK-MB (CK-2) Rel Index (0-4) Troponin T (0.00-0.029) ng/mL Total Protein (6.3-8.2) g/dL Albumin (3.9-5) g/dL Albumin/Globulin Ratio % Lipase (13-60) units/L Urine Color (Yellow) Urine Turbidity (Clear) Urine pH (5.0-7.0) Ur Specific [place] (1.003-1.030) Urine Protein (Negative) mg/dL Urine Glucose (UA) (Negative) mg/dL Urine Ketones (Negative) mg/dL Urine Blood (Negative) Urine Nitrite (Negative) Urine Bilirubin (Negative) Urine Urobilinogen (<2.0) mg/dL Ur Leukocyte Esterase (Negative) Urine WBC (Auto) (0.0-6.0) /HPF Urine RBC (Auto) (0.0-6.0) /HPF U Epithel Cells (Auto) (0-13.0) /HPF Urine Mucus /HPF 08/21/17 08/21/17 08/21/17 Range/Units 04:22 04:50 05:27 WBC (4.5-11.0) K/mm3 RBC (3.65-5.03) M/mm3 Hgb (11.8-15.2) gm/dl Hct (35.5-45.6) % MCV (84-94) fl MCH (28-32) pg MCHC (32-34) % RDW (13.2-15.2) % Plt Count (140-440) K/mm3 Add Manual Diff Total Counted Seg Neuts % (Manual) (40.0-70.0) % Band Neutrophils % % Lymphocytes % (Manual) (13.4-35.0) % Reactive Lymphs % (Man) % Monocytes % (Manual) (0.0-7.3) % Eosinophils % (Manual) (0.0-4.3) % Basophils % (Manual) (0.0-1.8) % Metamyelocytes % % Myelocytes % % Promyelocytes % % Blast Cells % % Nucleated RBC % Seg Neutrophils # Man (1.8-7.7) K/mm3 Band Neutrophils # K/mm3 Lymphocytes # (Manual) (1.2-5.4) K/mm3 Abs React Lymphs (Man) K/mm3 Monocytes # (Manual) (0.0-0.8) K/mm3 Eosinophils # (Manual) (0.0-0.4) K/mm3 Basophils # (Manual) (0.0-0.1) K/mm3 Metamyelocytes # K/mm3 Myelocytes # K/mm3 Promyelocytes # K/mm3 Blast Cells # K/mm3 WBC Morphology Hypersegmented Neuts Hyposegmented Neuts Hypogranular Neuts Smudge Cells Toxic Granulation Toxic Vacuolation Dohle Bodies Pelger-Huet Anomaly Mary Rods Platelet Estimate Clumped Platelets Plt Clumps, EDTA Large Platelets Giant Platelets Platelet Satelliting Plt Morphology Comment RBC Morphology Dimorphic RBCs Polychromasia Hypochromasia Poikilocytosis Anisocytosis Microcytosis Macrocytosis Spherocytes Pappenheimer Bodies Sickle Cells Target Cells Tear Drop Cells Ovalocytes Helmet Cells [place] Bodies [place] Rings Patrice Cells Bite Cells Crenated Cell Elliptocytes Acanthocytes (Spur) Rouleaux Hemoglobin C Crystals Schistocytes Malaria parasites Fernando Bodies Hem Pathologist Commnt VBG pH (7.320-7.420) Sodium 128 L (137-145) mmol/L Potassium 3.5 L (3.6-5.0) mmol/L Chloride 101.1 (98-107) mmol/L Carbon Dioxide 14 L (22-30) mmol/L Anion Gap 16 mmol/L BUN 8 L (9-20) mg/dL Creatinine 0.6 L (0.8-1.5) mg/dL Estimated GFR > 60 ml/min BUN/Creatinine Ratio 13 % Glucose 153 H (75-100) mg/dL POC Glucose 145 H 138 H (70-105) Calcium 8.2 L (8.4-10.2) mg/dL Phosphorus (2.5-4.5) mg/dL Magnesium (1.7-2.3) mg/dL Total Bilirubin (0.1-1.2) mg/dL Direct Bilirubin (0-0.2) mg/dL Indirect Bilirubin mg/dL AST (5-40) units/L ALT (7-56) units/L Alkaline Phosphatase (35-129) units/L Total Creatine Kinase (55-170) units/L CK-MB (CK-2) (0.0-4.0) ng/mL CK-MB (CK-2) Rel Index (0-4) Troponin T (0.00-0.029) ng/mL Total Protein (6.3-8.2) g/dL Albumin (3.9-5) g/dL Albumin/Globulin Ratio % Lipase (13-60) units/L Urine Color (Yellow) Urine Turbidity (Clear) Urine pH (5.0-7.0) Ur Specific [place] (1.003-1.030) Urine Protein (Negative) mg/dL Urine Glucose (UA) (Negative) mg/dL Urine Ketones (Negative) mg/dL Urine Blood (Negative) Urine Nitrite (Negative) Urine Bilirubin (Negative) Urine Urobilinogen (<2.0) mg/dL Ur Leukocyte Esterase (Negative) Urine WBC (Auto) (0.0-6.0) /HPF Urine RBC (Auto) (0.0-6.0) /HPF U Epithel Cells (Auto) (0-13.0) /HPF Urine Mucus /HPF 08/21/17 08/21/17 08/21/17 Range/Units 06:53 08:09 09:28 WBC (4.5-11.0) K/mm3 RBC (3.65-5.03) M/mm3 Hgb (11.8-15.2) gm/dl Hct (35.5-45.6) % MCV (84-94) fl MCH (28-32) pg MCHC (32-34) % RDW (13.2-15.2) % Plt Count (140-440) K/mm3 Add Manual Diff Total Counted Seg Neuts % (Manual) (40.0-70.0) % Band Neutrophils % % Lymphocytes % (Manual) (13.4-35.0) % Reactive Lymphs % (Man) % Monocytes % (Manual) (0.0-7.3) % Eosinophils % (Manual) (0.0-4.3) % Basophils % (Manual) (0.0-1.8) % Metamyelocytes % % Myelocytes % % Promyelocytes % % Blast Cells % % Nucleated RBC % Seg Neutrophils # Man (1.8-7.7) K/mm3 Band Neutrophils # K/mm3 Lymphocytes # (Manual) (1.2-5.4) K/mm3 Abs React Lymphs (Man) K/mm3 Monocytes # (Manual) (0.0-0.8) K/mm3 Eosinophils # (Manual) (0.0-0.4) K/mm3 Basophils # (Manual) (0.0-0.1) K/mm3 Metamyelocytes # K/mm3 Myelocytes # K/mm3 Promyelocytes # K/mm3 Blast Cells # K/mm3 WBC Morphology Hypersegmented Neuts Hyposegmented Neuts Hypogranular Neuts Smudge Cells Toxic Granulation Toxic Vacuolation Dohle Bodies Pelger-Huet Anomaly Mary Rods Platelet Estimate Clumped Platelets Plt Clumps, EDTA Large Platelets Giant Platelets Platelet Satelliting Plt Morphology Comment RBC Morphology Dimorphic RBCs Polychromasia Hypochromasia Poikilocytosis Anisocytosis Microcytosis Macrocytosis Spherocytes Pappenheimer Bodies Sickle Cells Target Cells Tear Drop Cells Ovalocytes Helmet Cells [place] Bodies [place] Rings Blanca Cells Bite Cells Crenated Cell Elliptocytes Acanthocytes (Spur) Rouleaux Hemoglobin C Crystals Schistocytes Malaria parasites Fernando Bodies Hem Pathologist Commnt VBG pH (7.320-7.420) Sodium (137-145) mmol/L Potassium (3.6-5.0) mmol/L Chloride (98-107) mmol/L Carbon Dioxide (22-30) mmol/L Anion Gap mmol/L BUN (9-20) mg/dL Creatinine (0.8-1.5) mg/dL Estimated GFR ml/min BUN/Creatinine Ratio % Glucose (75-100) mg/dL POC Glucose 155 H 183 H 154 H (70-105) Calcium (8.4-10.2) mg/dL Phosphorus (2.5-4.5) mg/dL Magnesium (1.7-2.3) mg/dL Total Bilirubin (0.1-1.2) mg/dL Direct Bilirubin (0-0.2) mg/dL Indirect Bilirubin mg/dL AST (5-40) units/L ALT (7-56) units/L Alkaline Phosphatase (35-129) units/L Total Creatine Kinase (55-170) units/L CK-MB (CK-2) (0.0-4.0) ng/mL CK-MB (CK-2) Rel Index (0-4) Troponin T (0.00-0.029) ng/mL Total Protein (6.3-8.2) g/dL Albumin (3.9-5) g/dL Albumin/Globulin Ratio % Lipase (13-60) units/L Urine Color (Yellow) Urine Turbidity (Clear) Urine pH (5.0-7.0) Ur Specific [place] (1.003-1.030) Urine Protein (Negative) mg/dL Urine Glucose (UA) (Negative) mg/dL Urine Ketones (Negative) mg/dL Urine Blood (Negative) Urine Nitrite (Negative) Urine Bilirubin (Negative) Urine Urobilinogen (<2.0) mg/dL Ur Leukocyte Esterase (Negative) Urine WBC (Auto) (0.0-6.0) /HPF Urine RBC (Auto) (0.0-6.0) /HPF U Epithel Cells (Auto) (0-13.0) /HPF Urine Mucus /HPF 08/21/17 08/21/17 08/21/17 Range/Units 10:39 13:10 13:24 WBC (4.5-11.0) K/mm3 RBC (3.65-5.03) M/mm3 Hgb (11.8-15.2) gm/dl Hct (35.5-45.6) % MCV (84-94) fl MCH (28-32) pg MCHC (32-34) % RDW (13.2-15.2) % Plt Count (140-440) K/mm3 Add Manual Diff Total Counted Seg Neuts % (Manual) (40.0-70.0) % Band Neutrophils % % Lymphocytes % (Manual) (13.4-35.0) % Reactive Lymphs % (Man) % Monocytes % (Manual) (0.0-7.3) % Eosinophils % (Manual) (0.0-4.3) % Basophils % (Manual) (0.0-1.8) % Metamyelocytes % % Myelocytes % % Promyelocytes % % Blast Cells % % Nucleated RBC % Seg Neutrophils # Man (1.8-7.7) K/mm3 Band Neutrophils # K/mm3 Lymphocytes # (Manual) (1.2-5.4) K/mm3 Abs React Lymphs (Man) K/mm3 Monocytes # (Manual) (0.0-0.8) K/mm3 Eosinophils # (Manual) (0.0-0.4) K/mm3 Basophils # (Manual) (0.0-0.1) K/mm3 Metamyelocytes # K/mm3 Myelocytes # K/mm3 Promyelocytes # K/mm3 Blast Cells # K/mm3 WBC Morphology Hypersegmented Neuts Hyposegmented Neuts Hypogranular Neuts Smudge Cells Toxic Granulation Toxic Vacuolation Dohle Bodies Pelger-Huet Anomaly Mary Rods Platelet Estimate Clumped Platelets Plt Clumps, EDTA Large Platelets Giant Platelets Platelet Satelliting Plt Morphology Comment RBC Morphology Dimorphic RBCs Polychromasia Hypochromasia Poikilocytosis Anisocytosis Microcytosis Macrocytosis Spherocytes Pappenheimer Bodies Sickle Cells Target Cells Tear Drop Cells Ovalocytes Helmet Cells [place] Bodies [place] Rings Blanca Cells Bite Cells Crenated Cell Elliptocytes Acanthocytes (Spur) Rouleaux Hemoglobin C Crystals Schistocytes Malaria parasites Fernando Bodies Hem Pathologist Commnt VBG pH (7.320-7.420) Sodium 135 L D (137-145) mmol/L Potassium 3.4 L (3.6-5.0) mmol/L Chloride 103.9 (98-107) mmol/L Carbon Dioxide 17 L (22-30) mmol/L Anion Gap 18 mmol/L BUN 8 L (9-20) mg/dL Creatinine 0.6 L (0.8-1.5) mg/dL Estimated GFR > 60 ml/min BUN/Creatinine Ratio 13 % Glucose 131 H (75-100) mg/dL POC Glucose 102 150 H (70-105) Calcium 7.9 L (8.4-10.2) mg/dL Phosphorus (2.5-4.5) mg/dL Magnesium (1.7-2.3) mg/dL Total Bilirubin (0.1-1.2) mg/dL Direct Bilirubin (0-0.2) mg/dL Indirect Bilirubin mg/dL AST (5-40) units/L ALT (7-56) units/L Alkaline Phosphatase (35-129) units/L Total Creatine Kinase (55-170) units/L CK-MB (CK-2) (0.0-4.0) ng/mL CK-MB (CK-2) Rel Index (0-4) Troponin T (0.00-0.029) ng/mL Total Protein (6.3-8.2) g/dL Albumin (3.9-5) g/dL Albumin/Globulin Ratio % Lipase (13-60) units/L Urine Color (Yellow) Urine Turbidity (Clear) Urine pH (5.0-7.0) Ur Specific [place] (1.003-1.030) Urine Protein (Negative) mg/dL Urine Glucose (UA) (Negative) mg/dL Urine Ketones (Negative) mg/dL Urine Blood (Negative) Urine Nitrite (Negative) Urine Bilirubin (Negative) Urine Urobilinogen (<2.0) mg/dL Ur Leukocyte Esterase (Negative) Urine WBC (Auto) (0.0-6.0) /HPF Urine RBC (Auto) (0.0-6.0) /HPF U Epithel Cells (Auto) (0-13.0) /HPF Urine Mucus /HPF 08/21/17 08/21/17 Range/Units 15:14 16:57 WBC (4.5-11.0) K/mm3 RBC (3.65-5.03) M/mm3 Hgb (11.8-15.2) gm/dl Hct (35.5-45.6) % MCV (84-94) fl MCH (28-32) pg MCHC (32-34) % RDW (13.2-15.2) % Plt Count (140-440) K/mm3 Add Manual Diff Total Counted Seg Neuts % (Manual) (40.0-70.0) % Band Neutrophils % % Lymphocytes % (Manual) (13.4-35.0) % Reactive Lymphs % (Man) % Monocytes % (Manual) (0.0-7.3) % Eosinophils % (Manual) (0.0-4.3) % Basophils % (Manual) (0.0-1.8) % Metamyelocytes % % Myelocytes % % Promyelocytes % % Blast Cells % % Nucleated RBC % Seg Neutrophils # Man (1.8-7.7) K/mm3 Band Neutrophils # K/mm3 Lymphocytes # (Manual) (1.2-5.4) K/mm3 Abs React Lymphs (Man) K/mm3 Monocytes # (Manual) (0.0-0.8) K/mm3 Eosinophils # (Manual) (0.0-0.4) K/mm3 Basophils # (Manual) (0.0-0.1) K/mm3 Metamyelocytes # K/mm3 Myelocytes # K/mm3 Promyelocytes # K/mm3 Blast Cells # K/mm3 WBC Morphology Hypersegmented Neuts Hyposegmented Neuts Hypogranular Neuts Smudge Cells Toxic Granulation Toxic Vacuolation Dohle Bodies Pelger-Huet Anomaly Mary Rods Platelet Estimate Clumped Platelets Plt Clumps, EDTA Large Platelets Giant Platelets Platelet Satelliting Plt Morphology Comment RBC Morphology Dimorphic RBCs Polychromasia Hypochromasia Poikilocytosis Anisocytosis Microcytosis Macrocytosis Spherocytes Pappenheimer Bodies Sickle Cells Target Cells Tear Drop Cells Ovalocytes Helmet Cells [place] Bodies [place] Rings Blanca Cells Bite Cells Crenated Cell Elliptocytes Acanthocytes (Spur) Rouleaux Hemoglobin C Crystals Schistocytes Malaria parasites Fernando Bodies Hem Pathologist Commnt VBG pH (7.320-7.420) Sodium (137-145) mmol/L Potassium (3.6-5.0) mmol/L Chloride (98-107) mmol/L Carbon Dioxide (22-30) mmol/L Anion Gap mmol/L BUN (9-20) mg/dL Creatinine (0.8-1.5) mg/dL Estimated GFR ml/min BUN/Creatinine Ratio % Glucose (75-100) mg/dL POC Glucose 140 H 233 H (70-105) Calcium (8.4-10.2) mg/dL Phosphorus (2.5-4.5) mg/dL Magnesium (1.7-2.3) mg/dL Total Bilirubin (0.1-1.2) mg/dL Direct Bilirubin (0-0.2) mg/dL Indirect Bilirubin mg/dL AST (5-40) units/L ALT (7-56) units/L Alkaline Phosphatase (35-129) units/L Total Creatine Kinase (55-170) units/L CK-MB (CK-2) (0.0-4.0) ng/mL CK-MB (CK-2) Rel Index (0-4) Troponin T (0.00-0.029) ng/mL Total Protein (6.3-8.2) g/dL Albumin (3.9-5) g/dL Albumin/Globulin Ratio % Lipase (13-60) units/L Urine Color (Yellow) Urine Turbidity (Clear) Urine pH (5.0-7.0) Ur Specific [place] (1.003-1.030) Urine Protein (Negative) mg/dL Urine Glucose (UA) (Negative) mg/dL Urine Ketones (Negative) mg/dL Urine Blood (Negative) Urine Nitrite (Negative) Urine Bilirubin (Negative) Urine Urobilinogen (<2.0) mg/dL Ur Leukocyte Esterase (Negative) Urine WBC (Auto) (0.0-6.0) /HPF Urine RBC (Auto) (0.0-6.0) /HPF U Epithel Cells (Auto) (0-13.0) /HPF Urine Mucus /HPF - EKG Data -: EKG Interpreted by Me EKG shows normal: sinus rhythm, ST-T waves (no stemi) Rate: normal (84) - Medical Decision Making pt requires admission to ICU for dka dka Likely the cause of patient's vomiting Significant metabolic acidosis Associated hyperkalemia for correct insulin therapy IV fluids initiated Insulin drip and bolus initiated in ED - Differential Diagnosis DKA, gastritis, pancreatitis, cholechystitis, dehdyration Critical care attestation.: If time is entered above; I have spent that time in minutes in the direct care of this critically ill patient, excluding procedure time. ED Disposition Clinical Impression: Vomiting Diabetic ketoacidosis Qualifiers: Diabetes mellitus type: type 1 Disposition: DC-09 OP ADMIT IP TO THIS HOSP Is pt being admited?: Yes Condition: Serious Time of Disposition: 13:37 (DR coreas/hosp)
[2017-08-20] MEDS ORDERED: NovoLIN R 100 UNITS in NACL 0.9% 99 ML IV SCH ×3 (13:00→16:00)
[2017-08-20] MEDS ORDERED: MILK OF MAGNESIA PO PRN (13:38)
[2017-08-20] MEDS ORDERED: DULCOLAX PR PRN (13:38)
[2017-08-20] MEDS ORDERED: D50W (25GM) Syringe IV PRN ×2 (13:38)
[2017-08-20] MEDS ORDERED: ALUM-MAG HYDROX-SIMETH 200-200-20MG/5ML PO PRN (13:38)
[2017-08-20 13:42] LABS: Bilirubin,Urine NEG (Negative); Blood,Urine SM (Negative); Color,Urine Yellow (Yellow); Mucus,Urine FEW /HPF; Nitrite,Urine NEG (Negative); RBC,Urine < 1.0 /HPF (0.0-6.0); Urobilinogen,Urine < 2.0 mg/dL (<2.0)
[2017-08-20 13:44] LABS: Anisocytosis 1+; Basophils % (Manual) 0 % (0.0-1.8); Eosinophils % (Manual) 0 % (0.0-4.3); Platelet Estimate Consistent w Auto; Total Cells Counted 100
--- NOTE | 2017-08-20 13:44 | History and Physical Report ---
History of Present Illness Chief complaint: I feel sick History of present illness: 42 YO Male with DM, Nicotine Dependence presents to ED for evaluation. Pt states that he has experienced elevated glucose readings at home as well as increased thirst, nausea, vomiting, and polyuria over the past week with worsening symptoms over the past 12 hours. Pt acknowledges noncompliance with consistent carbohydrate diet, as trixie as insulin therapy. Patient was discharged last week and states his sugars have been running high since that time. Pt denies fever, chills, CP, Palpitations, Syncope, Prolonged travel/ immobility, individual/family history of DVT/PE, skin rash, or recent ill contacts. Pt seen and evaluated in ED and found to have DKA with concomitant metabolic acidosis. Pt initiated on insulin drip and admitted to ICU. Past History Past Medical History: diabetes Past Surgical History: No surgical history, Other (reviewed) Social history: , lives with family, smoking. denies: alcohol abuse, prescription drug abuse Family history: diabetes, hypertension Medications and Allergies Allergies Allergy/AdvReac Type Severity Reaction Status Date / Time No Known Allergies Allergy Verified 08/10/17 11:24 Home Medications Medication Instructions Recorded Confirmed Last Taken Type Insulin Detemir [Levemir VIAL] 30 units SUB-Q DAILY 08/10/17 08/20/17 Unknown History Insulin Lispro Prot/Lispro 30 units SUB-Q BID 08/10/17 08/20/17 Unknown History [HumaLOG Mix 75/25 Vial] Active Meds: Active Medications Al Hydrox/Mg Hydrox/Simethicone (Alum-Mag Hydrox-Simeth 858-780-11ys/5ml) 30 ml PO Q4H PRN PRN Reason: Indigestion Bisacodyl (Dulcolax) 10 mg ME QDAY PRN PRN Reason: constipation unrelieved by MOM Dextrose (D50w (25gm) Syringe) 0 ml IV PRN PRN PRN Reason: Hypoglycemia Dextrose (D50w (25gm) Syringe) 0 ml IV ONCE PRN PRN Reason: Hypoglycemia Insulin Human Regular 100 (units/ Sodium Chloride) 100 mls @ 1 mls/hr IV TITR GREG; 1 UNITS/HR PRN Reason: Protocol Last Admin: 08/20/17 13:11 Dose: 7 units/hr, 7 mls/hr Sodium Chloride (Nacl 0.9% 1000 Ml) 1,000 mls @ 999 mls/hr IV BOLUS ONE Stop: 08/20/17 14:38 Insulin Human Regular 100 (units/ Sodium Chloride) 100 mls @ 1 mls/hr IV TITR GREG; 1 UNITS/HR PRN Reason: Protocol Insulin Human Regular 100 (units/ Sodium Chloride) 100 mls @ 1 mls/hr IV TITR GREG; 1 UNITS/HR PRN Reason: Protocol Sodium Chloride (Nacl 0.45%) 3,000 mls @ 150 mls/hr IV DIRECT GREG Magnesium Hydroxide (Milk Of Magnesia) 30 ml PO Q4H PRN PRN Reason: Constipation Review of Systems Constitutional: no weight loss, no weight gain, no fever, no chills Ears, nose, mouth and throat: no ear pain, no ear discharge, no tinnitis, no decreased hearing, no nose pain, no nasal congestion Cardiovascular: no chest pain, no orthopnea, no palpitations, no rapid/ irregular heart beat, no edema, no syncope Respiratory: no cough, no cough with sputum, no excessive sputum, no hemoptysis , no shortness of breath Gastrointestinal: nausea, vomiting Genitourinary Male: no dysuria, no hematuria, no flank pain Rectal: no pain, no incontinence, no bleeding Musculoskeletal: no neck stiffness, no neck pain, no shooting arm pain, no arm numbness/tingling, no low back pain Integumentary: no rash, no pruritis, no redness, no sores, no wounds Neurological: no head injury, no transient paralysis, no paralysis, no weakness , no parathesias, no numbness, no tingling Psychiatric: no anxiety, no memory loss, no change in sleep habits, no sleep disturbances, no insomnia, no hypersomnia, no change in appetite Endocrine: polyphagia, excessive thirst, polydipsia, polyuria, no cold intolerance, no heat intolerance, no increase in ring/shoe/hat size, no proptosis, no deepening of the voice, no thyroid mass, no palpatations Hematologic/Lymphatic: no easy bruising, no easy bleeding, no lymphadenopathy, no lymphedema Allergic/Immunologic: no urticaria, no allergic rhinitis, no wheezing Exam - Constitutional Vitals: Temp Pulse Resp BP Pulse Ox 98.1 F 92 H 24 140/93 100 08/20/17 11:59 08/20/17 11:59 08/20/17 11:59 08/20/17 11:59 08/20/17 13:26 General appearance: Present: mild distress, cachectic, disheveled - EENT Eyes: Present: PERRL ENT: hearing intact, clear oral mucosa - Neck Neck: Present: supple, normal ROM - Respiratory Respiratory effort: normal Respiratory: bilateral: CTA - Cardiovascular Heart Sounds: Present: S1 & S2. Absent: rub, click - Extremities Extremities: pulses symmetrical, No edema Peripheral Pulses: within normal limits - Abdominal General gastrointestinal: Present: soft, non-tender, non-distended, normal bowel sounds Male genitourinary: Present: normal - Integumentary Integumentary: Present: clear, dry, clammy, decreased turgor - Musculoskeletal Musculoskeletal: gait normal, strength equal bilaterally - Psychiatric Psychiatric: appropriate mood/affect, intact judgment & insight - Neurologic Neurologic: CNII-XII intact, moves all extremities Results - Labs CBC & Chem 7: 08/20/17 11:45 08/21/17 04:50 Labs: Abnormal lab results 08/20/17 08/20/17 08/20/17 Range/Units 11:45 11:45 11:45 WBC 13.9 H (4.5-11.0) K/mm3 RBC 5.89 H (3.65-5.03) M/mm3 Hgb 16.4 H (11.8-15.2) gm/dl Hct 53.5 H (35.5-45.6) % MCHC 31 L (32-34) % VBG pH 6.938 L* (7.320-7.420) Sodium 132 L (137-145) mmol/L Potassium 5.4 H (3.6-5.0) mmol/L Chloride 88.4 L (98-107) mmol/L Carbon Dioxide 4 L* (22-30) mmol/L Glucose 448 H (75-100) mg/dL Assessment and Plan - Patient Problems (1) Diabetic ketoacidosis Current Visit: Yes Status: Acute Qualifiers: Diabetes mellitus type: type 1 Plan to address problem: DKA protocol, insulin drip, accu check, The high probability of a clinically significant, sudden or life threatening deterioration of the [neruo, endocrine, renal, pulmonary] system(s) required my full and direct attention, intervention and personal management. The aggregate critical care time was [65] minutes. This time is in addition to time spent performing reported procedures but includes the following: [x] Data Review and interpretation [x] Patient assessment and monitoring of vital signs [x] Documentation [x] Medication orders and management (2) Hyponatremia syndrome Current Visit: Yes Status: Acute Plan to address problem: IVF resuscitation therapy, treat dka, repeat bmp (3) Metabolic acidosis Current Visit: No Status: Acute Plan to address problem: Bicarbonate infusion, IVF , monitor uop q shift, (4) DVT prophylaxis Current Visit: Yes Status: Acute
[2017-08-20] MEDS ORDERED: NACL 0.45% 3,000 ML IV SCH (14:00)
[2017-08-20] MEDS ORDERED: SODIUM BICARBONATE IV ONE ×3 (14:39→20:45)
[2017-08-20 15:51] LABS: Magnesium 2.6 mg/dL (1.7-2.3)
[2017-08-20 15:53] LABS: Creatine Kinase MB 2.2 ng/mL (0.0-4.0)
[2017-08-20 15:55] LABS: Alanine Aminotransferase 13 units/L (7-56); Albumin 5.2 g/dL (3.9-5); Bilirubin,Direct 0.2 mg/dL (0-0.2); Lipase 30 units/L (13-60)
[2017-08-20 16:50] LABS: BUN/Creatinine Ratio 16; Blood Urea Nitrogen 14 mg/dL (9-20); Calcium 7.9 mg/dL (8.4-10.2); Hemolysis Index 9
[2017-08-20] MEDS ORDERED: D5W/0.45% NACL/KCL 20 MEQ 20 MEQ/1,000 ML BAG IV SCH (17:00)
--- NOTE | 2017-08-20 18:06 | Consultation ---
History of Present Illness Consult date: 08/20/17 Requesting physician: CHERYL MCCABE Reason for consult: other (DKA) History of present illness: PULMONARY/CCM CONSULT NOTE (Full dictation # ) Please see dictated notes for full details Medications and Allergies Allergies Allergy/AdvReac Type Severity Reaction Status Date / Time No Known Allergies Allergy Verified 08/10/17 11:24 Home Medications Medication Instructions Recorded Confirmed Last Taken Type Insulin Detemir [Levemir VIAL] 30 units SUB-Q DAILY 08/10/17 08/20/17 Unknown History Insulin Lispro Prot/Lispro 30 units SUB-Q BID 08/10/17 08/20/17 Unknown History [HumaLOG Mix 75/25 Vial] Active Meds: Active Medications Al Hydrox/Mg Hydrox/Simethicone (Alum-Mag Hydrox-Simeth 479-101-15me/5ml) 30 ml PO Q4H PRN PRN Reason: Indigestion Bisacodyl (Dulcolax) 10 mg RI QDAY PRN PRN Reason: constipation unrelieved by MOM Dextrose (D50w (25gm) Syringe) 0 ml IV PRN PRN PRN Reason: Hypoglycemia Dextrose (D50w (25gm) Syringe) 0 ml IV ONCE PRN PRN Reason: Hypoglycemia Insulin Human Regular 100 (units/ Sodium Chloride) 100 mls @ 1 mls/hr IV TITR GREG; 1 UNITS/HR PRN Reason: Protocol Sodium Chloride (Nacl 0.45%) 3,000 mls @ 150 mls/hr IV DIRECT GREG Potassium Chloride/Dextrose/Sod Cl (D5w/0.45% Nacl/Kcl 20 Meq) 20 meq in 1,000 mls @ 125 mls/hr IV DIRECT GREG Magnesium Hydroxide (Milk Of Magnesia) 30 ml PO Q4H PRN PRN Reason: Constipation Physical Examination Vital signs: Vital Signs Temp Pulse Resp BP Pulse Ox 98.1 F 92 H 24 140/93 100 08/20/17 11:59 08/20/17 11:59 08/20/17 11:59 08/20/17 11:59 08/20/17 11:59 Results - Laboratory Findings CBC and BMP: 08/20/17 11:45 08/20/17 15:40 Abnormal lab findings: Abnormal Labs 08/20/17 08/20/17 08/20/17 11:45 11:45 11:45 WBC 13.9 H RBC 5.89 H Hgb 16.4 H Hct 53.5 H MCHC 31 L Seg Neuts % (Manual) 76.0 H Monocytes % (Manual) 9.0 H Seg Neutrophils # Man 10.6 H Monocytes # (Manual) 1.3 H VBG pH 6.938 L* Sodium 132 L Potassium 5.4 H Chloride 88.4 L Carbon Dioxide 4 L* Glucose 448 H POC Glucose Calcium Phosphorus Magnesium Total Protein Albumin 08/20/17 08/20/17 08/20/17 11:45 11:45 14:17 WBC RBC Hgb Hct MCHC Seg Neuts % (Manual) Monocytes % (Manual) Seg Neutrophils # Man Monocytes # (Manual) VBG pH Sodium Potassium Chloride Carbon Dioxide Glucose POC Glucose 260 H Calcium Phosphorus 5.70 H Magnesium 2.60 H Total Protein 8.6 H Albumin 5.2 H 08/20/17 08/20/17 08/20/17 15:16 15:40 16:20 WBC RBC Hgb Hct MCHC Seg Neuts % (Manual) Monocytes % (Manual) Seg Neutrophils # Man Monocytes # (Manual) VBG pH Sodium 130 L Potassium Chloride 95.3 L Carbon Dioxide 4 L* Glucose 268 H POC Glucose 241 H 221 H Calcium 7.9 L Phosphorus Magnesium Total Protein Albumin
[2017-08-20 22:07] LABS: BUN/Creatinine Ratio 13; Blood Urea Nitrogen 10 mg/dL (9-20); Calcium 7.3 mg/dL (8.4-10.2); Hemolysis Index 5
[2017-08-20 23:35] LABS: BUN/Creatinine Ratio 13; Blood Urea Nitrogen 9 mg/dL (9-20); Hemolysis Index 16
[2017-08-21] MEDS: D5W/0.45% NACL/KCL 20 MEQ 20 MEQ/1,000 ML BAG IV SCH (02:41)
[2017-08-21 05:36] LABS: BUN/Creatinine Ratio 13; Blood Urea Nitrogen 8 mg/dL (9-20); Calcium 8.2 mg/dL (8.4-10.2); Hemolysis Index 12
[2017-08-21] MEDS ORDERED: SODIUM BICARBONATE IV ONE (06:02)
[2017-08-21] MEDS ORDERED: NACL 0.9% 1000 ML 2,000 ML ONE (09:11)
[2017-08-21] MEDS ORDERED: NACL 0.9% 1000 ML 2,000 ML IV ONE (09:16)
[2017-08-21 13:38] LABS: BUN/Creatinine Ratio 13; Blood Urea Nitrogen 8 mg/dL (9-20); Calcium 7.9 mg/dL (8.4-10.2); Hemolysis Index 5
--- NOTE | 2017-08-21 13:52 | Progress Note ---
Assessment and Plan - Patient Problems (1) Diabetic ketoacidosis Current Visit: Yes Status: Acute Qualifiers: Diabetes mellitus type: type 1 Plan to address problem: Continue with IV fluids Start long acting weight based insulin Get HBA1C, lipid panel Diabetic education VTE prophylaxis. Can transfer to telemetry. No longer needing ICU admission (2) Metabolic acidosis Current Visit: No Status: Acute Plan to address problem: Secondary to DKA Continue with IV Fluids, insulin therapy Continue DKA protocol (3) Tobacco abuse disorder Current Visit: Yes Status: Acute Plan to address problem: Smoking cessation counselling (4) Hyponatremia syndrome Current Visit: Yes Status: Acute Plan to address problem: Secondary to hyperglycemia. Continue with IV fluids and monitor sodium levels. Subjective Date of service: 08/21/17 Principal diagnosis: DKA Interval history: 42 YO Male with DM, Nicotine Dependence presents to ED for evaluation. Pt states that he has experienced elevated glucose readings at home as well as increased thirst, nausea, vomiting, and polyuria over the past week with worsening symptoms over the past 12 hours. Pt acknowledges noncompliance with consistent carbohydrate diet, as trixie as insulin therapy. Patient was discharged last week and states his sugars have been running high since that time. Pt denies fever, chills, CP, Palpitations, Syncope, Prolonged travel/ immobility, individual/family history of DVT/PE, skin rash, or recent ill contacts. Pt seen and evaluated in ED and found to have DKA with concomitant metabolic acidosis. Pt initiated on insulin drip and admitted to ICU. Objective Vital Signs - 12hr 08/21/17 08/21/17 08/21/17 03:00 04:00 05:00 Pulse Rate 68 70 65 Respiratory 18 16 16 Rate Blood Pressure 98/62 98/65 104/67 [Right] O2 Sat by Pulse 98 96 98 Oximetry 08/21/17 06:00 Pulse Rate 70 Respiratory 16 Rate Blood Pressure 96/65 [Right] O2 Sat by Pulse 96 Oximetry Constitutional: no acute distress Eyes: non-icteric ENT: oropharynx moist Neck: supple, no lymphadenopathy, no JVD Effort: mildly labored Ascultation: Bilateral: clear Cardiovascular: regular rate and rhythm, other (S1,S2, no murmurs, gallops or rubs) Gastrointestinal: normoactive bowel sounds, soft, non-tender, non-distended Integumentary: normal Extremities: no cyanosis, no edema, no ischemia or petechiae Neurologic: normal mental status, non-focal exam Psychiatric: mood appropriate, affect normal CBC and BMP: 08/20/17 11:45 08/21/17 13:10 Abnormal lab findings: Abnormal Labs 08/20/17 08/20/17 08/20/17 11:45 11:45 11:45 WBC 13.9 H RBC 5.89 H Hgb 16.4 H Hct 53.5 H MCHC 31 L Seg Neuts % (Manual) 76.0 H Monocytes % (Manual) 9.0 H Seg Neutrophils # Man 10.6 H Monocytes # (Manual) 1.3 H VBG pH 6.938 L* Sodium 132 L Potassium 5.4 H Chloride 88.4 L Carbon Dioxide 4 L* BUN Creatinine Glucose 448 H POC Glucose Calcium Phosphorus Magnesium Total Protein Albumin 08/20/17 08/20/17 08/20/17 11:45 11:45 14:17 WBC RBC Hgb Hct MCHC Seg Neuts % (Manual) Monocytes % (Manual) Seg Neutrophils # Man Monocytes # (Manual) VBG pH Sodium Potassium Chloride Carbon Dioxide BUN Creatinine Glucose POC Glucose 260 H Calcium Phosphorus 5.70 H Magnesium 2.60 H Total Protein 8.6 H Albumin 5.2 H 08/20/17 08/20/17 08/20/17 15:16 15:40 16:20 WBC RBC Hgb Hct MCHC Seg Neuts % (Manual) Monocytes % (Manual) Seg Neutrophils # Man Monocytes # (Manual) VBG pH Sodium 130 L Potassium Chloride 95.3 L Carbon Dioxide 4 L* BUN Creatinine Glucose 268 H POC Glucose 241 H 221 H Calcium 7.9 L Phosphorus Magnesium Total Protein Albumin 08/20/17 08/20/17 08/20/17 17:23 19:10 20:38 WBC RBC Hgb Hct MCHC Seg Neuts % (Manual) Monocytes % (Manual) Seg Neutrophils # Man Monocytes # (Manual) VBG pH Sodium Potassium Chloride Carbon Dioxide BUN Creatinine Glucose POC Glucose 187 H 164 H 156 H Calcium Phosphorus Magnesium Total Protein Albumin 08/20/17 08/20/17 08/20/17 21:46 22:29 23:13 WBC RBC Hgb Hct MCHC Seg Neuts % (Manual) Monocytes % (Manual) Seg Neutrophils # Man Monocytes # (Manual) VBG pH Sodium 131 L 126 L Potassium Chloride Carbon Dioxide 13 L D 13 L BUN Creatinine 0.7 L Glucose 168 H 170 H POC Glucose 161 H Calcium 7.3 L 8.0 L Phosphorus Magnesium Total Protein Albumin 08/20/17 08/21/17 08/21/17 23:17 00:26 01:19 WBC RBC Hgb Hct MCHC Seg Neuts % (Manual) Monocytes % (Manual) Seg Neutrophils # Man Monocytes # (Manual) VBG pH Sodium Potassium Chloride Carbon Dioxide BUN Creatinine Glucose POC Glucose 153 H 153 H 152 H Calcium Phosphorus Magnesium Total Protein Albumin 08/21/17 08/21/17 08/21/17 02:15 03:18 04:22 WBC RBC Hgb Hct MCHC Seg Neuts % (Manual) Monocytes % (Manual) Seg Neutrophils # Man Monocytes # (Manual) VBG pH Sodium Potassium Chloride Carbon Dioxide BUN Creatinine Glucose POC Glucose 123 H 138 H 145 H Calcium Phosphorus Magnesium Total Protein Albumin 08/21/17 08/21/17 08/21/17 04:50 05:27 06:53 WBC RBC Hgb Hct MCHC Seg Neuts % (Manual) Monocytes % (Manual) Seg Neutrophils # Man Monocytes # (Manual) VBG pH Sodium 128 L Potassium 3.5 L Chloride Carbon Dioxide 14 L BUN 8 L Creatinine 0.6 L Glucose 153 H POC Glucose 138 H 155 H Calcium 8.2 L Phosphorus Magnesium Total Protein Albumin 08/21/17 08/21/17 08/21/17 08:09 09:28 13:10 WBC RBC Hgb Hct MCHC Seg Neuts % (Manual) Monocytes % (Manual) Seg Neutrophils # Man Monocytes # (Manual) VBG pH Sodium 135 L D Potassium 3.4 L Chloride Carbon Dioxide 17 L BUN 8 L Creatinine 0.6 L Glucose 131 H POC Glucose 183 H 154 H Calcium 7.9 L Phosphorus Magnesium Total Protein Albumin 08/21/17 13:24 WBC RBC Hgb Hct MCHC Seg Neuts % (Manual) Monocytes % (Manual) Seg Neutrophils # Man Monocytes # (Manual) VBG pH Sodium Potassium Chloride Carbon Dioxide BUN Creatinine Glucose POC Glucose 150 H Calcium Phosphorus Magnesium Total Protein Albumin Allied health notes reviewed: nursing (current accucheck 150mg/dl, switch to weight based subcut insulin therapy)
[2017-08-21] MEDS ORDERED: D50W (25GM) Syringe IV PRN (15:31)
[2017-08-21] MEDS ORDERED: NOVOLOG SUB-Q SCH (16:30)
[2017-08-21] MEDS: HABITROL TD SCH (17:59)
[2017-08-21] MEDS: NACL 0.45% 1000 ML 1,000 ML IV SCH (19:26)
--- NOTE | 2017-08-21 23:12 | Progress Note ---
Assessment and Plan Assessment and plan: 42 YO Male with DM, Nicotine Dependence presents to ED for evaluation. Pt states that he has experienced elevated glucose readings at home as well as increased thirst, nausea, vomiting, and polyuria over the past week with worsening symptoms over the past 12 hours. Pt acknowledges noncompliance with consistent carbohydrate diet, as trixie as insulin therapy. Patient was discharged last week and states his sugars have been running high since that time. Pt denies fever, chills, CP, Palpitations, Syncope, Prolonged travel/ immobility, individual/family history of DVT/PE, skin rash, or recent ill contacts. Pt seen and evaluated in ED and found to have DKA with concomitant metabolic acidosis. Pt initiated on insulin drip and admitted to ICU. (1) Diabetic ketoacidosis DKA protocol, insulin drip, accu check, will transition to long acting insulin (2) Hyponatremia syndrome IVF resuscitation therapy, treat dka, repeat bmp (3) Metabolic acidosis Bicarbonate infusion, IVF , monitor uop q shift, (4) Hypokalemia Replace electrolytes (5)DVT prophylaxis Current Visit: Yes Status: Acute Plan discussed with the patient, will downgrade to the medical floor. History Interval history: Patient seen and examined, denies any new complaints. Hospitalist Physical - Constitutional Vitals: Temp Pulse Resp BP Pulse Ox 98.3 F 63 18 93/57 97 08/21/17 16:42 08/21/17 16:42 08/21/17 16:42 08/21/17 16:42 08/21/17 16:42 General appearance: Present: mild distress, cachectic, disheveled - EENT Eyes: Present: PERRL, EOM intact ENT: hearing intact - Neck Neck: Present: supple, normal ROM - Respiratory Respiratory effort: normal Respiratory: bilateral: CTA - Cardiovascular Rhythm: regular Heart Sounds: Present: S1 & S2. Absent: systolic murmur, diastolic murmur, rub - Extremities Extremities: no ischemia, pulses intact, pulses symmetrical Peripheral Pulses: within normal limits - Abdominal General gastrointestinal: soft, non-tender, non-distended, normal bowel sounds - Integumentary Integumentary: Present: clear, warm, dry - Psychiatric Psychiatric: appropriate mood/affect, intact judgment & insight - Neurologic Neurologic: CNII-XII intact, moves all extremities - Allied Health Allied health notes reviewed: nursing Results - Labs CBC & Chem 7: 01/08/18 11:45 08/21/17 13:10 Labs: Laboratory Last Values WBC 13.9 K/mm3 (4.5-11.0) H 08/20/17 11:45 RBC 5.89 M/mm3 (3.65-5.03) H 08/20/17 11:45 Hgb 16.4 gm/dl (11.8-15.2) H 08/20/17 11:45 Hct 53.5 % (35.5-45.6) H 08/20/17 11:45 MCV 91 fl (84-94) 08/20/17 11:45 MCH 28 pg (28-32) 08/20/17 11:45 MCHC 31 % (32-34) L 08/20/17 11:45 RDW 15.2 % (13.2-15.2) 08/20/17 11:45 Plt Count 219 K/mm3 (140-440) 08/20/17 11:45 Add Manual Diff Complete 08/20/17 11:45 Total Counted 100 08/20/17 11:45 Seg Neuts % (Manual) 76.0 % (40.0-70.0) H 08/20/17 11:45 Band Neutrophils % 0 % 08/20/17 11:45 Lymphocytes % (Manual) 15.0 % (13.4-35.0) 08/20/17 11:45 Reactive Lymphs % (Man) 0 % 08/20/17 11:45 Monocytes % (Manual) 9.0 % (0.0-7.3) H 08/20/17 11:45 Eosinophils % (Manual) 0 % (0.0-4.3) 08/20/17 11:45 Basophils % (Manual) 0 % (0.0-1.8) 08/20/17 11:45 Metamyelocytes % 0 % 08/20/17 11:45 Myelocytes % 0 % 08/20/17 11:45 Promyelocytes % 0 % 08/20/17 11:45 Blast Cells % 0 % 08/20/17 11:45 Nucleated RBC % Not Reportable 08/20/17 11:45 Seg Neutrophils # Man 10.6 K/mm3 (1.8-7.7) H 08/20/17 11:45 Band Neutrophils # 0.0 K/mm3 08/20/17 11:45 Lymphocytes # (Manual) 2.1 K/mm3 (1.2-5.4) 08/20/17 11:45 Abs React Lymphs (Man) 0.0 K/mm3 08/20/17 11:45 Monocytes # (Manual) 1.3 K/mm3 (0.0-0.8) H 08/20/17 11:45 Eosinophils # (Manual) 0.0 K/mm3 (0.0-0.4) 08/20/17 11:45 Basophils # (Manual) 0.0 K/mm3 (0.0-0.1) 08/20/17 11:45 Metamyelocytes # 0.0 K/mm3 08/20/17 11:45 Myelocytes # 0.0 K/mm3 08/20/17 11:45 Promyelocytes # 0.0 K/mm3 08/20/17 11:45 Blast Cells # 0.0 K/mm3 08/20/17 11:45 WBC Morphology Not Reportable 08/20/17 11:45 Hypersegmented Neuts Not Reportable 08/20/17 11:45 Hyposegmented Neuts Not Reportable 08/20/17 11:45 Hypogranular Neuts Not Reportable 08/20/17 11:45 Smudge Cells Not Reportable 08/20/17 11:45 Toxic Granulation Not Reportable 08/20/17 11:45 Toxic Vacuolation Not Reportable 08/20/17 11:45 Dohle Bodies Not Reportable 08/20/17 11:45 Pelger-Huet Anomaly Not Reportable 08/20/17 11:45 Mary Rods Not Reportable 08/20/17 11:45 Platelet Estimate Consistent w auto 08/20/17 11:45 Clumped Platelets Not Reportable 08/20/17 11:45 Plt Clumps, EDTA Not Reportable 08/20/17 11:45 Large Platelets Not Reportable 08/20/17 11:45 Giant Platelets Not Reportable 08/20/17 11:45 Platelet Satelliting Not Reportable 08/20/17 11:45 Plt Morphology Comment Not Reportable 08/20/17 11:45 RBC Morphology Not Reportable 08/20/17 11:45 Dimorphic RBCs Not Reportable 08/20/17 11:45 Polychromasia Not Reportable 08/20/17 11:45 Hypochromasia Not Reportable 08/20/17 11:45 Poikilocytosis Not Reportable 08/20/17 11:45 Anisocytosis 1+ 08/20/17 11:45 Microcytosis Not Reportable 08/20/17 11:45 Macrocytosis Not Reportable 08/20/17 11:45 Spherocytes Not Reportable 08/20/17 11:45 Pappenheimer Bodies Not Reportable 08/20/17 11:45 Sickle Cells Not Reportable 08/20/17 11:45 Target Cells Not Reportable 08/20/17 11:45 Tear Drop Cells Not Reportable 08/20/17 11:45 Ovalocytes Not Reportable 08/20/17 11:45 Helmet Cells Not Reportable 08/20/17 11:45 [place] Bodies Not Reportable 08/20/17 11:45 [place] Rings Not Reportable 08/20/17 11:45 Patrice Cells Not Reportable 08/20/17 11:45 Bite Cells Not Reportable 08/20/17 11:45 Crenated Cell Not Reportable 08/20/17 11:45 Elliptocytes Not Reportable 08/20/17 11:45 Acanthocytes (Spur) Not Reportable 08/20/17 11:45 Rouleaux Not Reportable 08/20/17 11:45 Hemoglobin C Crystals Not Reportable 08/20/17 11:45 Schistocytes Not Reportable 08/20/17 11:45 Malaria parasites Not Reportable 08/20/17 11:45 Fernando Bodies Not Reportable 08/20/17 11:45 Hem Pathologist Commnt No 08/20/17 11:45 VBG pH 6.938 (7.320-7.420) L* 08/20/17 11:45 Sodium 135 mmol/L (137-145) L D 08/21/17 13:10 Potassium 3.4 mmol/L (3.6-5.0) L 08/21/17 13:10 Chloride 103.9 mmol/L (98-107) 08/21/17 13:10 Carbon Dioxide 17 mmol/L (22-30) L 08/21/17 13:10 Anion Gap 18 mmol/L 08/21/17 13:10 BUN 8 mg/dL (9-20) L 08/21/17 13:10 Creatinine 0.6 mg/dL (0.8-1.5) L 08/21/17 13:10 Estimated GFR > 60 ml/min 08/21/17 13:10 BUN/Creatinine Ratio 13 % 08/21/17 13:10 Glucose 131 mg/dL (75-100) H 08/21/17 13:10 POC Glucose 318 (70-105) H 08/21/17 21:21 Calcium 7.9 mg/dL (8.4-10.2) L 08/21/17 13:10 Phosphorus 5.70 mg/dL (2.5-4.5) H 08/20/17 11:45 Magnesium 2.60 mg/dL (1.7-2.3) H 08/20/17 11:45 Total Bilirubin < 0.20 mg/dL (0.1-1.2) 08/20/17 11:45 Direct Bilirubin 0.2 mg/dL (0-0.2) 08/20/17 11:45 Indirect Bilirubin 0.0 mg/dL 08/20/17 11:45 AST 14 units/L (5-40) 08/20/17 11:45 ALT 13 units/L (7-56) 08/20/17 11:45 Alkaline Phosphatase 109 units/L (35-129) 08/20/17 11:45 Total Creatine Kinase 83 units/L (55-170) 08/20/17 11:45 CK-MB (CK-2) 2.2 ng/mL (0.0-4.0) 08/20/17 11:45 CK-MB (CK-2) Rel Index 2.6 (0-4) 08/20/17 11:45 Troponin T < 0.010 ng/mL (0.00-0.029) 08/20/17 11:45 Total Protein 8.6 g/dL (6.3-8.2) H 08/20/17 11:45 Albumin 5.2 g/dL (3.9-5) H 08/20/17 11:45 Albumin/Globulin Ratio 1.5 % 08/20/17 11:45 Lipase 30 units/L (13-60) 08/20/17 11:45 Urine Color Yellow (Yellow) 08/20/17 13:12 Urine Turbidity Clear (Clear) 08/20/17 13:12 Urine pH 5.0 (5.0-7.0) 08/20/17 13:12 Ur Specific [place] 1.018 (1.003-1.030) 08/20/17 13:12 Urine Protein 100 mg/dl mg/dL (Negative) 08/20/17 13:12 Urine Glucose (UA) >=500 mg/dL (Negative) 08/20/17 13:12 Urine Ketones 80 mg/dL (Negative) 08/20/17 13:12 Urine Blood Sm (Negative) 08/20/17 13:12 Urine Nitrite Neg (Negative) 08/20/17 13:12 Urine Bilirubin Neg (Negative) 08/20/17 13:12 Urine Urobilinogen < 2.0 mg/dL (<2.0) 08/20/17 13:12 Ur Leukocyte Esterase Neg (Negative) 08/20/17 13:12 Urine WBC (Auto) 1.0 /HPF (0.0-6.0) 08/20/17 13:12 Urine RBC (Auto) < 1.0 /HPF (0.0-6.0) 08/20/17 13:12 U Epithel Cells (Auto) 1.0 /HPF (0-13.0) 08/20/17 13:12 Urine Mucus Few /HPF 08/20/17 13:12
[2017-08-22] MEDS: NOVOLOG SUB-Q SCH ×4 (00:03→17:56)
[2017-08-22] MEDS: D5W/0.45% NACL/KCL 20 MEQ 20 MEQ/1,000 ML BAG IV SCH (04:12)
[2017-08-22 08:14] LABS: Hematocrit 38.1 % (35.5-45.6); Hemoglobin 12.8 gm/dl (11.8-15.2); Mean Corpuscular HGB Conc 34 % (32-34); Mean Corpuscular Hemoglobin 28 pg (28-32); Mean Corpuscular Volume 84 fl (84-94); Platelet Count 158 K/mm3 (140-440); Red Blood Count 4.53 M/mm3 (3.65-5.03); Red Cell Distribution Width 13.8 % (13.2-15.2)
[2017-08-22 08:49] LABS: BUN/Creatinine Ratio 12; Blood Urea Nitrogen 6 mg/dL (9-20); Calcium 7.9 mg/dL (8.4-10.2); Hemolysis Index 5
[2017-08-22] MEDS: NACL 0.45% 1000 ML 1,000 ML IV SCH (09:15)
[2017-08-22] MEDS: HABITROL TD SCH (09:56)
[2017-08-22] MEDS ORDERED: K-DUR PO ONE (10:00)
[2017-08-22] MEDS ORDERED: MAGNESIUM SULFATE 1 GM in NACL 0.9% 50 ML IV ONE (11:00)
--- NOTE | 2017-08-22 11:51 | Discharge Summary ---
Providers - Providers Date of Admission: 08/20/17 13:38 Attending physician: BRAYDEN WIN MD 08/20/17 13:40 Consult to Physician [CONS] Routine Consulting Provider: JAM GAY Reason For Exam: dka Place consult to:: Dr. Gay Notified:: yes Phone number called:: [phone] Was contact made?: Yes If yes, spoke with:: Dr. Gay Time called:: 13:48 08/21/17 16:59 Consult to Dietitian/Nutrition [CONS] Routine Physician Instructions: Reason For Exam: uncontrolled diabetes Reason for Consult: Diet education Primary care physician: [employer] Hospitalization Reason for admission: DKA Condition: Stable Hospital course: 42 YO Male with DM, Nicotine Dependence presents to ED for evaluation. Pt states that he has experienced elevated glucose readings at home as well as increased thirst, nausea, vomiting, and polyuria over the past week with worsening symptoms over the past 12 hours. Pt acknowledges noncompliance with consistent carbohydrate diet, as trixie as insulin therapy. Patient was discharged last week and states his sugars have been running high since that time. Pt denies fever, chills, CP, Palpitations, Syncope, Prolonged travel/ immobility, individual/family history of DVT/PE, skin rash, or recent ill contacts. Pt seen and evaluated in ED and found to have DKA with concomitant metabolic acidosis. Pt initiated on insulin drip and admitted to ICU. (1) Diabetic ketoacidosis Treated with DKA protocol and transitioned to long acting. Extensive discussion. Patient while in house was started on half his home dose insulin as he states that he takes at home and he was dropping. will decrease to only Humulin and at a lower dose of 20 units BID (2) Hyponatremia syndrome IVF resuscitation therapy was given (3) Metabolic acidosis Bicarbonate infusion was given and resolved (4) Hypokalemia ReplaceD electrolytes Disposition: DC- TO HOME OR SELFCARE Time spent for discharge: 35 mins Core Measure Documentation - Palliative Care Palliative Care/ Comfort Measures: Not Applicable - Core Measures Any of the following diagnoses?: none - VTE Discharge Requirements Deep Vein Thrombosis/Pulmonary Embolism Present on Admission: No Exam - Physical Exam Narrative exam: VITAL SIGNS: Reviewed. GENERAL: The patient appeared well nourished and normally developed. Vital signs as documented. HEAD: No signs of head trauma. EYES: Pupils are equal. Extraocular motions intact. EARS: Hearing grossly intact. MOUTH: Oropharynx is normal. NECK: No adenopathy, no JVD. CHEST: Chest with clear breath sounds bilaterally. No wheezes, rales, or rhonchi. CARDIAC: Regular rate and rhythm. S1 and S2, without murmurs, gallops, or rubs. VASCULAR: No Edema. Peripheral pulses normal and equal in all extremities. ABDOMEN: Soft, without detectable tenderness. No sign of distention. No rebound or guarding, and no masses palpated. Bowel Sounds normal. MUSCULOSKELETAL: Good range of motion of all major joints. Extremities without clubbing, cyanosis or edema. NEUROLOGIC EXAM: Alert and oriented x 3. No focal sensory or strength deficits. Speech normal. Follows commands. PSYCHIATRIC: Mood normal. SKIN: No rash or lesions. - Constitutional Vitals: Temp Pulse Resp BP Pulse Ox 98.4 F 71 18 99/64 95 08/22/17 08:12 08/22/17 08:12 08/22/17 08:12 08/22/17 08:12 08/22/17 09:03 Plan Activity: advance as tolerated, fall precautions Diet: diabetic Special Instructions: record daily BP diary, record blood sugar diary, smoking cessation Follow up with: PRIMARY CARE, [Primary Care Provider] - 3-5 Days Prescriptions: Insulin NPH/Regular [NovoLIN 70/30] 20 unit SUB-Q BIDDIAB 30 Days units
[2017-08-22] MEDS ORDERED: PNEUMOVAX 23 IM ONE (12:00)
[2017-08-22] MEDS: KCL 10MEQ/100ML 10 MEQ/100 ML BAG IV SCH ×4 (12:43→15:40)
[2017-08-22 18:29] VITALS: BP 104/72
== END 2017-08-22 19:06 | disposition home or self-care (01) | DRG 638 ==
LOC: ED 11:23 → CC1 13:38 → 3A 08-21 15:55
PROVIDERS: ADMIT Internal Medicine; ATTEND Internal Medicine
DX: E13.10 Other specified diabetes mellitus with ketoacidosis without coma (principal); E87.1 Hypo-osmolality and hyponatremia; F17.210 Nicotine dependence, cigarettes, uncomplicated; F12.10 Cannabis abuse, uncomplicated; E87.6 Hypokalemia; Z71.6 Tobacco abuse counseling
CPT/HCPCS: 36415; 80048; 80074; 81001; 82550; 82553; 82805; 82962; 83690; 83735; 84100; 84132; 84484; 85007; 85025; 85027; 90732; 93005; 93010; 96361; 96365; 96375; 96376; J1815; J2405; J3475; J3480; J7030